=== PATIENT | female | born 2005 | race Caucasian/White ===

== ENCOUNTER 2024-01-10 11:21 | Emergency (ER) | payer OTHER, SELFPAY ==
[2024-01-10 11:24] VITALS: BP 138/84
[2024-01-10 11:42] VITALS: BP 105/66; BMI 20.1
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
[2024-01-10 12:00] VITALS: BP 111/64
--- NOTE | 2024-01-10 12:19 | EDRN ---
crisis currently at the pts bedside speaking with the pt
[2024-01-10 13:00] VITALS: BP 102/61
--- NOTE | 2024-01-10 13:37 | EDRN ---
crisis currently at the pts bedside speaking with the pt
[2024-01-10 13:46] VITALS: BP 96/73
== END 2024-01-10 13:55 | disposition home or self-care (01) ==
LOC: EMR 11:21
PROVIDERS: EMERGENCY PHYSICIAN Emergency Medicine; FAMILY PHYSICIAN Student in an Organized Health Care Education/Training Program
DX: Z00.8 Encounter for other general examination (principal)
CPT/HCPCS: 99281

== ENCOUNTER 2024-03-20 23:35 | Emergency (ER) | payer OTHER, SELFPAY ==
[2024-03-20 23:39] VITALS: BP 109/68
[2024-03-21] VITALS: BMI 27.0
--- NOTE | 2024-03-21 00:29 | ED.GENMED ---
History of Present Illness
General
Chief Complaint: Musculo-Skeletal Complaint
Source: patient
Exam Limitations: none
Time Seen by Provider: 03/21/24 00:01
Nursing documentation reviewed up to this point in time: agreed with
History of Present Illness
History of Present Illness:
18-year-old female presents to the ER for evaluation of an ankle injury. Patient reports she was playing basketball last week and she suffered inversion injury of the right ankle. She has had pain since although she has been able to bear weight.
She is having persistent swelling. She says that at the time of the injury she also developed a wound/blister on the heel. With swelling and pain continuing after we came to the ER to be evaluated. Denies knee pain. No other injuries.
Past History
Past History
ED Past Medical History: None
ED Past Surgical History: None
Social History
Tobacco: Non-smoker
Alcohol: None
Drug: None
Personal: Single
Living: with family
Employment: Student
Family History
Family History: Other
Review of Systems
Review of Systems
All Other Systems: ROS reviewed and negative except as documented in HPI and ROS
Musculoskeletal: Reports other (Ankle injury)
Skin: Reports other (blister)
Phy Exam
Physical Exam
Physical Exam:
General: Well appearing and non-toxic
HEENT: protecting airway
Neck: appears supple
CV: No evidence of cyanosis
Resp: No accessory muscle use
Abd: Non-distended
Extremities: Patient has swelling lateral right ankle and tenderness inferior aspect of the lateral malleolus on the right; no tenderness of the fifth metatarsal, no significant tenderness of the medial malleolus, no midfoot tenderness, no defect in
the Achilles tendon, negative Figueroa's test
Neuro: Alert
Psych: Normal affect
Skin: Patient has approximately dime sized blister on the right heel unroofed shallow ulceration
Scores
Heart Failure Risk
Heart Failure Risk Score: Not Applicable
Heart Score for Chest Pain Patients
STEMI patient?: Not applicable
Withdrawal Assessment of Alcohol
Withdrawal Assessment Completed?: Not applicable
Course
Orders/Labs/Results
Orders:
Orders
03/20/24 23:43
Ankle, Right 3 view CR [CR Ankle - Right Min 3 Views *] Urgent
Comment:
Reason For Exam: injury
CR Foot - Right Min 3 Views Urgent
Comment:
Reason For Exam: injury
Vital Signs
Initial and Last Documented VS:
Initial Vital Signs
Temp Pulse Resp BP Pulse Ox
37.5 C 65 20 109/68 99
03/20/24 23:39 03/20/24 23:39 03/20/24 23:39 03/20/24 23:39 03/20/24 23:39
Last Documented Vital Signs
Temp Pulse Resp BP Pulse Ox
37.5 C 65 20 109/68 99
03/20/24 23:39 03/20/24 23:39 03/20/24 23:39 03/20/24 23:39 03/20/24 23:39
MDM/Problems Addressed
Differential Diagnosis Includes:
Ankle sprain, ankle fracture, Achilles injury
MDM/Problems Addressed:
18-year-old female presents with right ankle pain after an injury last week playing basketball. Still having pain and swelling so came to the ER. Vitals and exam as above. X-rays reviewed by me show no acute fracture. Suspect ankle sprain. She
also has a blister which we cleaned and dressed. Advised RICE. Stable for discharge.
*Radiology
Radiology exam reviewed: preliminary read by ED provider
*Pulse Oximetry
Patient hypoxic: no
*Critical Care Note
Total Time (30-74mins, 75-104mins- exclusive of procedures): Not Applicable
Data Reviewed
Source: patient
ED Attending Note
-
Portions of this chart may have been created with voice recognition software.� Occasional wrong word or��sound alike� substitutions may have occurred due to the inherent limitations of voice recognition software.
Discharge Plan
Departure
Patient Disposition: Home (Routine Discharge)
Date of Disposition: 03/21/24
Time of Disposition: 00:27
Patient with high blood pressure during this ER visit?: No
Discharge Problem:
Right ankle sprain, Blister of right heel
Instructions: Sprain (DC), RICE Therapy
Prescriptions:
No Action
acetaminophen 325 mg Tablet
650 mg PO Q6HPRN PRN (Reason: mild pain/BARBOUR/temp> 100.4F) Qty: 30 0RF
ibuprofen 400 mg tablet
400 mg PO Q8H PRN (Reason: fever or pain) Qty: 14 0RF
Activity Restrictions/Additional Instructions:
Thank you for visiting the Emergency Department at [facility].
1. Please schedule a follow up appointment as directed. Call first thing tomorrow morning to make an appointment.
2. If indicated, please take your medications as instructed and indicated on discharge paperwork.
3. If any of your symptoms do not improve, or persist, or become more severe within 6-12 hours, please return to the emergency department for further care.
4. Please return to the emergency department if you develop a headache, neck pain/stiffness, fever greater than 100.4F, chest pain, shortness of breath, persistent nausea, vomiting, slurred speech, difficulty walking, numbness/tingling, weakness,
signs of infection or any other symptoms that are worrisome to you.
Please call [phone] if you have any questions.
Interventions
Interventions:
*Risk Screen - Suicide Last Done: 03/20/24 23:39
*General Assessment Last Done: 03/20/24 23:39
*Neglect/Abuse Screening Last Done: 03/20/24 23:39
ED- Fall Risk Assessment Last Done: 03/20/24 23:39
*ED COVID-19 Vaccine History Last Done: 03/20/24 23:39
ED-Musculoskeletal Assessment Last Done: 03/20/24 23:58
Discharge Date and Time
Print Language: ICELANDIC
== END 2024-03-21 00:34 | disposition home or self-care (01) ==
LOC: EMR 23:35
PROVIDERS: EMERGENCY PHYSICIAN Emergency Medicine; FAMILY PHYSICIAN Pediatrics
DX: S93.401A Sprain of unspecified ligament of right ankle, initial encounter (principal); S90.821A Blister (nonthermal), right foot, initial encounter; Y93.67 Activity, basketball
CPT/HCPCS: 99283; 73610; 73630

== ENCOUNTER 2024-03-28 22:31 | Inpatient (IN) | payer OTHER, SELFPAY ==
[2024-03-28 16:10] VITALS: BP 97/48
[2024-03-28 16:36] LABS: HCG, Serum Qualitative Screen Negative; Hematocrit 34.8 % (37.0-47.0); Hemoglobin 11.5 g/dL (12.0-16.0); Mean Corpuscular Hgb 30.2 pg (27.0-31.0); Mean Corpuscular Volume 91.3 fL (81.0-99.0); Mean Platelet Volume 10.2 fL (7.4-10.4); Platelet Count 173 10^3/uL (130-400); Red Blood Cell Count 3.81 10^6/uL (4.20-5.40); Red Cell Dist. Width 12.7 % (11.5-14.5); White Blood Cell Count 9.6 10^3/uL (4.8-10.8)
[2024-03-28 16:38] LABS: COVID-19 Antigen Negative (Negative)
[2024-03-28 16:40] LABS: ALT (SGPT) 112 U/L (0-35); AST (SGOT) 45 U/L (14-36); Albumin 3.3 g/dl (3.5-5.0); Alkaline Phosphatase 225 U/L (38-126); Blood Urea Nitrogen 13 mg/dl (7-17); Calcium 8.4 mg/dl (8.4-10.2); Carbon Dioxide 25 mmol/L (22-30); Chloride 102 mmol/L (98-107); Glucose 115 mg/dl (70-99); Potassium 3.9 mmol/L (3.5-5.1); Sodium 135 mmol/L (135-145); eGFR > 60.00
[2024-03-28 16:48] LABS: Absolute Neutrophils -Man Diff 8.5 10^3/uL (1.4-6.5); Band Neutrophils 9 % (0-3); Lymphocytes 5 % (20-51); Monocytes 6 % (2-9); Segmented Neutrophils 80 % (42-75)
[2024-03-28 16:49] LABS: Normal RBC Morphology Yes; Platelets Checked Yes; Total Cells Counted 100; Toxic Granulation Slight
--- NOTE | 2024-03-28 17:35 | ED.GENMED ---
History of Present Illness
General
Chief Complaint: Dizziness
Time Seen by Provider: 03/28/24 17:35
History of Present Illness
History of Present Illness:
TIME OF INITIAL ENCOUNTER: 5:40 PM
HPI: Patient came in from home by ambulance due to fevers and chills. This is associated with nausea and vomiting. She has some upper abdominal discomfort. She says she has been having headaches. She also indicates that she was waking up in the
nighttime with having 'episodes' sometimes with some shaking but she is awake throughout the episodes and thoughts that she may be she was having seizures. Mom states that she has been had a partial hospitalization program. She states that she
took two 500 mg strength Tylenols twice this morning. She also took ibuprofen. Mom states she was hospitalized for mono 2 years ago. She has had some trouble breathing. She recently stopped Lamictal that she was only on for a couple of weeks.
She also started Caplyta 2 days ago. I spoke to the mother away from the patient and she has been at a partial hospitalization program for her mental health with questionable diagnosis of affective versus bipolar.
EXAM:
GENERAL: Well appearing in no distress but appears somewhat weak
HEENT: Moist oral mucosa
CARDIOVASCULAR: No murmurs, normal heart rate, regular rhythm, No chest wall tenderness
PULMONARY: No respiratory distress, breath sounds are clear and equal
ABDOMEN: Soft with no peritoneal signs, mild to moderate right upper quad tenderness
NEUROLOGIC: Excellent strength all extremities, no coordination deficits, no meningeal signs
PSYCHIATRIC: Appropriate mental status, normal insight and judgement
EXTREMITIES: Nontender, no edema, moves all extremities equally
SKIN: No rash, no lesions
NUMBER AND COMPLEXITY OF PROBLEMS ADDRESSED AT THE ENCOUNTER
� Chronic conditions affecting care: No significant past medical history but is currently being evaluated at a partial hospitalization program for mental health
� Acute Exacerbation and/or Progression of Chronic Illness: This is an acute problem
� Differential Diagnosis includes: Viral syndrome, pneumonia, hepatitis, cholecystitis, sepsis
AMOUNT AND/OR COMPLEXITY OF DATA TO BE REVIEWED AND ANALYZED
� I performed an independent evaluation of and my interpretation is:
EKG:
CT:
X-rays: Chest x-ray shows consolidation at the bases left greater than right with abnormality on lateral view as well
Laboratory Studies: COVID and flu negative, hCG negative, white count 9.6 but has 10% bands, hemoglobin 11.5, renal function normal. Alk phos, AST, and ALT are slightly elevated.
Other:
� Review of other/old records: I reviewed records, the patient was seen here with mental health evaluation this past December.
� Clinical information was obtained by an independent historian: I spoke to mother and sister at bedside
� Prescriptions/Medications Considered but not given:
� Further testing considered but not performed: I did offer and consider lumbar puncture, however the workup does show signs of pneumonia based on x-ray therefore we will hold off on LP
RISK OF COMPLICATIONS AND/OR MORBIDITY OR MORTALITY OF PATIENT MANAGEMENT
� Social determinants of health affecting care: Lives at home, has been going to a partial hospitalization program but family cannot give me a clear answer as to what she was diagnosed with other than possibly bipolar or
schizophrenia.
� Discussion with other providers: Hospitalist for admission, Dr. Serrano at 9:41 PM
� Escalation of care including admission/observation vs risk of discharge considered:
ANY OTHER UPDATES:
8:20 PM: The patient continues to have multiple complaints including headache, vaginal discharge, and is concerned about this episode that she has been having at night. We did talk about the possibly of doing lumbar puncture. She prefers to wait
for additional imaging such as chest x-ray and the ultrasound first. Regard the vaginal pain, I did perform a bimanual examination which was relatively unremarkable in the presence of ROXY Arguelles.
Past History
Past History
ED Past Medical History: None
ED Past Surgical History: None
Social History
Tobacco: Non-smoker
Alcohol: None
Drug: None
Personal: Single
Living: with family
Employment: Student
Family History
Family History: Other
Phy Exam
Physical Exam
Physical Exam:
See HPI
Sepsis
Sepsis Screening
Sepsis Assessment: Sepsis
Sepsis Screen
Sepsis Screen: Sepsis
Date: 03/28/24
Time: 22:06
Course
Orders/Labs/Results
Orders:
Orders
03/28/24 16:09
Test Result ONCE
03/28/24 16:14
Acetaminophen Urgent
Comment: ADD ON
COVID-19 Antigen Urgent
Source: Nasal Swab
Complete Blood Count/With Diff Urgent
Comprehensive Metabolic Panel Urgent
HCG, Serum Qualitative Screen Urgent
Lactic Acid Urgent
Manual Differential Urgent
Monotest Urgent
Comment: ADD ON
Influenza A+B Rapid Molecular Urgent
AILEEN Source: Nasal Swab
Specimen Description:
03/28/24 17:36
Add On- LAB Urgent
Tests Added?: acetaminophen level
03/28/24 17:37
0.9% Sodium Chloride 1000 ml [Nss] 1,000 ml IV BOLUS
03/28/24 17:45
Add On- LAB Urgent
Tests Added?: monotest
0.9% Sodium Chloride 1000 ml [Nss] 1,000 ml IV BOLUS
Ketorolac [Toradol] 15 mg IV NOW STA
US Abdomen Complete/Upper Urgent
Comment:
Reason For Exam: RUQ tender; abnormal LFT; fevers
03/28/24 17:53
CR Chest - 2 Views Urgent
Comment:
Reason For Exam: sob fevers
03/28/24 19:23
0.9% Sodium Chloride 1000 ml [Nss] 1,000 ml IV BOLUS
Acetaminophen [Tylenol] 1,000 mg PO NOW STA
03/28/24 20:29
Urinalysis Reflex To Culture Urgent
Date Specimen was Collected: 03/28/24
Time Specimen was Collected: 20:27
Urine Microscopic Reflex Cult Urgent
Urine Culture Urgent
AILEEN Source: U
Specimen Description:
Date Specimen was Collected: 03/28/24
Time Specimen was Collected: 20:27
03/28/24 21:13
Azithromycin 500 mg/250 ml [Zithromax Infusion] 500 mg in 250 ml IV NOW
CefTRIAXone [Rocephin] 1,000 mg IV NOW STA
03/28/24 21:54
Blood Culture Q30M
AILEEN Source: Blood/Venous
Specimen Description:
Blood Culture Q30M
AILEEN Source: Blood/Venous
Specimen Description:
Abnormal Lab Results
03/28/24 03/28/24
16:14 20:29
RBC 3.81 L 10^6/uL
(4.20-5.40)
Hgb 11.5 L g/dL
(12.0-16.0)
Hct 34.8 L %
(37.0-47.0)
Abs Neuts (Manual) 8.5 H 10^3/uL
(1.4-6.5)
Segmented Neutrophils 80 H %
(42-75)
Band Neutrophils 9 H %
(0-3)
Lymphocytes (Manual) 5 L %
(20-51)
Glucose 115 H mg/dl
(70-99)
AST 45 H U/L
(14-36)
ALT 112 H U/L
(0-35)
Alkaline Phosphatase 225 H U/L
(38-126)
Total Protein 6.0 L g/dl
(6.3-8.2)
Albumin 3.3 L g/dl
(3.5-5.0)
Urine Ketones 1+ A
(Negative)
Urine Bilirubin 1+ A
(Negative)
Urine Urobilinogen 3+ A
(Neg - 1+)
Leukocyte Esterase Rfl Trace A
(Negative)
Urine RBC 3-6 A /HPF
(0-2)
Urine Bacteria (Reflex) Moderate A
(Negative)
Urine Glucose 1+ A
(Negative)
Urine Albumin (Reflex) 1+ A
(Neg - Trace)
03/28/24 16:14
03/28/24 16:14
Vital Signs
Initial and Last Documented VS:
Initial Vital Signs
Temp Pulse Resp Pulse Ox
38.5 C H 125 18 95
03/28/24 16:02 03/28/24 16:02 03/28/24 16:02 03/28/24 16:02
Last Documented Vital Signs
Temp Pulse Resp BP Pulse Ox
37.9 C 105 31 125/70 91
03/28/24 20:12 03/28/24 20:30 03/28/24 20:30 03/28/24 20:00 03/28/24 20:30
*Critical Care Note
Total Time (30-74mins, 75-104mins- exclusive of procedures): Not Applicable
ED Attending Note
-
Portions of this chart may have been created with voice recognition software.� Occasional wrong word or��sound alike� substitutions may have occurred due to the inherent limitations of voice recognition software.
Discharge Plan
Departure
Patient Disposition: Admit
Date of Disposition: 03/28/24
Time of Disposition: 21:44
Presentation/result/management discussed w/ accepting MD/DO: Hospitalist
Discharge Problem:
Sepsis due to pneumonia
Prescriptions:
No Action
acetaminophen 325 mg Tablet
650 mg PO Q6HPRN PRN (Reason: mild pain/BARBOUR/temp> 100.4F) Qty: 30 0RF
ibuprofen 400 mg tablet
400 mg PO Q8H PRN (Reason: fever or pain) Qty: 14 0RF
Referrals:
Ryan Boyer III, [Family Provider] -
Interventions
Interventions:
*Risk Screen - Suicide Last Done: 03/28/24 16:10
*Neglect/Abuse Screening Last Done: 03/28/24 16:10
ED- Neurological Assessment Last Done: 03/28/24 18:06
ED- Cardiac Assessment Last Done: 03/28/24 18:06
Discharge Date and Time
Print Language: ITALIAN
[2024-03-28 17:40] VITALS: BP 109/57
[2024-03-28] MEDS: NSS 1000 IV ×3 (17:52→19:29)
[2024-03-28] MEDS: TORADOL 15 MG IV (17:53)
[2024-03-28 18:00] VITALS: BP 114/58
[2024-03-28 18:08] LABS: Acetaminophen 12 ug/ml (10-30)
[2024-03-28 18:11] LABS: Monotest Negative (Negative)
[2024-03-28 19:00] VITALS: BP 122/72
[2024-03-28] MEDS: TYLENOL 1000 MG PO (19:29)
[2024-03-28 20:00] VITALS: BP 125/70
[2024-03-28 20:37] LABS: Urine Albumin 1+ (Neg - Trace); Urine Bilirubin 1+ (Negative); Urine Character Clear (Clear); Urine Color Yellow; Urine Glucose 1+ (Negative); Urine Ketone 1+ (Negative); Urine Leukocyte Trace (Negative); Urine Nitrite Negative (Negative); Urine Occult Blood Negative (Negative); Urine Urobilinogen 3+ (Neg - 1+)
[2024-03-28 20:55] LABS: Urine Bacteria Moderate (Negative)
--- NOTE | 2024-03-28 21:53 | HPS.HSE ---
Family Physician
-
Family Physician: Ryan Boyer, III, DO
Chief Complaint
-
Fever
History of Present Illness
18-year-old with past medical history for bipolar presented to us fever chills for past 6 days. Patient stated fever of 103 at home. Patient is complaining of generalized body achiness. She also complained of nausea and vomiting. For past 2
days, she was not able to tolerate any oral intake. She was waking up at nighttime with shaking chills. Patient was taking ibuprofen and Tylenol with no relief in her symptoms. Patient denied any abdominal pain. Stated burning with urination.
Denied any hematuria.
Patient was treated with azithromycin and ceftriaxone for possible pneumonia
Medical History
Past Medical History
Past Medical History: Reports Other
Additional Past Medical History:
Bipolar
Past Surgical History: Reports None
Social History
Tobacco: Former Smoker
Alcohol: None
Drug: None
Personal: Single
Living: With Family
Family History
Family History: Not pertinent
Allergies / Home Medications
Allergies reflects when Allergies were last updated in [employer].
Home Medications with original date entered in [employer]
Allergy/Medication List:
Allergies
Allergy/AdvReac Type Severity Reaction Status Date / Time
No Known Allergies Allergy Verified 03/20/24 23:39
Home Medications
acetaminophen 325 mg tablet 650 mg (2 x 325 mg) PO Q6HPRN PRN mild pain/BARBOUR/temp> 100.4F #30 tabs 01/30/22
ibuprofen 400 mg tablet 400 mg PO Q8H PRN fever or pain #14 tabs 01/30/22
Review of Systems
-
Constitutional: Reports Fever, Fatigue, Night Sweats and Chills
EENT: Reports No Symptoms
Respiratory: Reports Cough
Cardiac: Reports No Symptoms
Abdomen/GI: Reports Nausea and Vomiting
: Reports No Symptoms
Musculoskeletal: Reports No Symptoms
Skin: Reports No Symptoms
Neurological: Reports No Symptoms
Endocrine: Reports No Symptoms
Hematologic/Lymphatic: Reports No Symptoms
Psych: Reports No Symptoms
Physical Exam
Vital Signs
Vital Signs
Temp Pulse Resp BP Pulse Ox
100.2 F 105 31 125/70 91
03/28/24 20:12 03/28/24 20:30 03/28/24 20:30 03/28/24 20:00 03/28/24 20:30
Physical Exam
General: Well Developed, Well Nourished and No Apparent Distress
HEENT: NormoCephalic, Moist mucous membranes and Atraumatic
Respiratory: Clear
Cardiac: S1/S2 and Regular Rhythm; No Murmur or Rub
GI: Soft, Non Tender, Non Distended and Normal Bowel Sounds; No Organomegaly
Rectal: Deferred by Provider
Musculoskeletal: No Clubbing, No Cyanosis and No Edema
Skin: No Rash
Neuro: AO x 3 and Nonfocal/grossly intact
Psych: Calm
Laboratory Results
-
03/28/24 16:14
03/28/24 16:14
Laboratory Results
Lactic Acid 1.0 mmol/L (0.7-2.0) 03/28/24 16:14
Total Bilirubin 1.0 mg/dl (0.2-1.3) 03/28/24 16:14
AST 45 U/L (14-36) H 03/28/24 16:14
ALT 112 U/L (0-35) H 03/28/24 16:14
Alkaline Phosphatase 225 U/L (38-126) H 03/28/24 16:14
Data Reviewed
-
Lab Data: Labs Reviewed by me
Impression/Plan
-
# Fever/n/v/chills likely from pneumonia
# Sepsis as evidenced by fever, tachycardia
-Blood culture sent from ER
-IV Rocephin azithromycin
-COVID, mono, flu negative
-Tylenol as needed for fever
-Zofran prn for n/v
# Anemia of chronic disease
-Hemoglobin stable at 11.5
-No active bleeding
-Continue to monitor
# Chronic LFT elevation
-Continue to monitor
-Abdominal ultrasound pending
# Bipolar
-Caplyta continued
# DVT prophylaxis
-scd
# CODE STATUS
-Full code
[2024-03-28] MEDS: ROCEPHIN 1000 MG IV (21:55)
[2024-03-28] MEDS: ZITHROMAX INFUSION 250 IV (22:00)
--- NOTE | 2024-03-28 22:29 | W.PN.UPDATE ---
Update Note
Progress Note Update
This note serves as an addendum to the H&P by renewable energy consultant ELIA Geena GOVEA
HPI
18 F HX Bipolar disorder seen at ER
- [facility]
- reports fever and chills : T 102, Tachy cardic and marginal hypoxia at ER
- associated with nausea and vomiting and some upper abdominal discomfort.
- associated headaches
- she took two 500 mg Tylenols twice this morning and also too ibuprofen.
- She recently stopped Lamictal that she was only on for a couple of weeks.
- She also started Caplyta 2 days ago.
She has been at a partial hospitalization program for her mental health with questionable diagnosis of affective versus bipolar disorder
Reviewed VS: T 102. [address] 105 tachypnic Normotensive POx low 90s on RA
PE
Gen: Not toxic looking
HEENT: anicteric
Neck: supple
Lungs: crackles at both bases, cough with deep breathin,. No wheeze
Cor: RRR S1 S2
Abdomen: soft benign
INTERACTIVE ACCOUNT MANAGER: AAO# , NFND
MS: no edema
Psych: normal mood and affect
Data
Abnormal Lab Results
03/28/24 03/28/24
16:14 20:29
RBC 3.81 L
Hgb 11.5 L
Hct 34.8 L
Abs Neuts (Manual) 8.5 H
Segmented Neutrophils 80 H
Band Neutrophils 9 H
Lymphocytes (Manual) 5 L
Glucose 115 H
AST 45 H
ALT 112 H
Alkaline Phosphatase 225 H
Total Protein 6.0 L
Albumin 3.3 L
Urine Ketones 1+ A
Urine Bilirubin 1+ A
Urine Urobilinogen 3+ A
Leukocyte Esterase Rfl Trace A
Urine RBC 3-6 A
Urine Bacteria (Reflex) Moderate A
Urine Glucose 1+ A
Urine Albumin (Reflex) 1+ A
BCx sent
US Abdomen:
Neg GB, neg sonographic Chen's
CBD 3.8mm
mild hepato splenomegaly
CXR my read: consolidation at the bases Lt post > Rt
ASSESSMENT & PLAN
Suspect B/L PNA at both bases presumed CAP
Associated Sepsis with bandemia
Suspect bacteremia
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
- agree with IV CFTZ and PO azithromycin
- check Urine Legionella Ag
- Septic fluid IV NS and maintenance IV NS
- BCx sent
HX BPD vs Affective disorder
On partial hospitalization program
DVT Px: SCD
Full code
IP MS
[2024-03-28] MEDS: ZOFRAN 4 MG IV (22:50)
[2024-03-28 22:53] VITALS: BMI 25.1
[2024-03-29] VITALS (8 sets, daily range): BP systolic 92–125; BP diastolic 51–79; BMI 27.6
[2024-03-29] MEDS: NSS 1000 IV ×3 (00:40→22:21)
[2024-03-29] MEDS: TYLENOL 650 MG PO ×5 (00:40→22:23)
[2024-03-29] MEDS: MOTRIN 200 MG PO (00:41)
[2024-03-29] MEDS: ULTRAM 100 MG PO (00:42)
--- NOTE | 2024-03-29 01:34 | EDRN ---
Pt fever 103.3, medicated with 200mg Ibuprofen & 650mg Tylenol as per orders. Pt c/o whole body pain, states tylenol and ibuprofen have no been helping. Pt ordered for 100mg tramadol PRN, dose given. Pt tachypneic and having frequent nonproductive
cough, states she has been feeling short of breath since Saturday. O2 sat 80% on room air. Pt placed on 4L NC O2 and was able to get her up to 96%. Pt reports improvement with supplemental O2. CRISSY Ledezma made aware and at bedside to see patient.
[2024-03-29] MEDS: TESSALON PERLES 100 MG PO ×4 (01:41→22:22)
[2024-03-29] MEDS: ROBITUSSIN DM 5 ML PO ×3 (06:05→22:22)
--- NOTE | 2024-03-29 06:31 | EDRN ---
Pt awake, coughing more at this time. Temp 98.3. Pt given Robitussin DM. O2 sat 88% on 4L NC O2. CRISSY Schmitt made aware, oxygen increased to 6L NC O2. Pt given incentive spirometer and demonstrated proper use. Awaiting neb treatment order.
[2024-03-29 06:44] LABS: ALT (SGPT) 71 U/L (0-35); AST (SGOT) 28 U/L (14-36); Albumin 2.7 g/dl (3.5-5.0); Alkaline Phosphatase 162 U/L (38-126); Blood Urea Nitrogen 10 mg/dl (7-17); Calcium 7.8 mg/dl (8.4-10.2); Carbon Dioxide 24 mmol/L (22-30); Chloride 105 mmol/L (98-107); Estimated Creatinine Clearance > 125 ml/min; Glucose 103 mg/dl (70-99); Potassium 4.4 mmol/L (3.5-5.1); Sodium 136 mmol/L (135-145); Total Bilirubin 0.8 mg/dl (0.2-1.3); Total Protein 5.3 g/dl (6.3-8.2); eGFR > 60.00
--- NOTE | 2024-03-29 08:15 | W.PN.UPDATE ---
Update Note
Progress Note Update
18-year-old female with fever and chills. Patient stated that she was started on Lamictal as outpatient 2 weeks ago. A week ago she started getting sick with cough fever and bodyaches. Lamictal was stopped. She was started on Caplyta which she
states that she has not been taking even though parents think that she is taking it. She does not want to take antidepressants and parents force her to take it.
EKG sinus tachycardia.
Chest x-ray reviewed by me-bilateral lower lobe infiltrates
CVS: S1-S2 normal
Chest: few rales bilaterally
Abdomen: Soft, NT / Bowel sounds present
Extremities: No edema, normal pulses
AIRCRAFT INSPECTION RECORD CLERK: Non focal exam
# Fever chills with criteria met for sepsis on admission
Gram-positive cocci in pairs and chains-likely Streptococcus pneumonia
Likely from pneumonia
Repeat blood cultures
Infectious disease consultation
Continue ceftriaxone and Zithromax
COVID, influenza negative
Sputum culture if possible
# LFT elevation-trending down
Seems to have chronically elevated LFTs since 2021 -unclear if this was the time when she had mononucleosis
Ultrasound of the abdomen-mild hepatomegaly, mild splenomegaly. Unremarkable gallbladder
Patient also stated that she was taking Tylenol at home up to 5 g. Add on Tylenol level to admission labs
LFTs are improving
# Depression-continue Caplyta started 2 days ago
She recently stopped Lamictal a week ago
Patient states that she has not been taking Caplyta and does not want to take it.
Pharmacy does not carry
# Active smoker-cessation counseling done use nicotine patch if needed.
# DVT prophylaxis
# Full code
--- NOTE | 2024-03-29 08:16 | EDRN ---
BReakfast tray ordered for patient
[2024-03-29] MEDS: MUCINEX 600 MG PO ×2 (08:28→19:48)
[2024-03-29] MEDS: ULTRAM 25 MG PO ×3 (08:36→22:24)
--- NOTE | 2024-03-29 12:07 | PHANOTE ---
med rec note- patient saved stopped her caplyta 21mg Hs, she also stopped her Lamictal 25mg daily on Saturday and she acosta snot know what divalproex 250mg dr daily for 7 day then bid for 23 days filled on 02/25/24 at [facility]. patient grandma
in room said she have patient mom call me about patient medication.
[2024-03-29 13:18] LABS: Acetaminophen < 10 ug/ml (10-30)
--- NOTE | 2024-03-29 13:33 | CON.ID ---
Consultation
-
Date/Time Consultation Requested: 03/29/2024 0823
Date/Time Consultation Performed: 03/29/2024 1224
Requesting Provider: Dr. Sin
Performing Provider: Dr. Amaral
Reason for Consultation: Pneumonia; bacteremia
Chief Complaint / Past History
History of Present Illness
Saumya Zamora is a 18-year-old female being evaluated at the request of Dr. Sin in regards to pneumonia. History is obtained from chart review, along with patient interview. Additionally, history was obtained from the patient's grandmother
who is at the bedside.
The patient recently was in the ER on 03/21 for a right ankle injury after she was playing sports. She was discharged to home, and reports that she did well thereafter. She notes that approximately 6 days ago she began to develop chills and a
headache. Over the past week symptomatology has worsened with the development of intermittent vertigo and dizziness, along with fevers and night sweats. She additionally has developed a cough and some shortness of breath intermittently.
Temperatures were noted to be 2 103 degrees at home. She reports taking Tylenol and Motrin to reduce fevers. She admits to clear sputum production which is noted to be thick, with occasional blood streaking over the past day or so. Yesterday she
developed nausea and vomiting. She additionally admits to occasional dysuria. Ultimately symptomatology persisted and she presents to the emergency room for further evaluation. Here she was not found to have a leukocytosis, but blood cultures
obtained at the time of admission are now positive for gram-positive cocci, and Infectious Diseases is asked to comment upon further antimicrobial therapy.
Past History
Past Medical History: None
Past Surgical History: None
Allergy History:
No Known Allergies Allergy (Verified 03/20/24 23:39)
Medications Reviewed: Yes
Current Antibiotics:
Ceftriaxone
Azithromycin
Social History
Tobacco: Non-Smoker
Alcohol: None
Drug: None
Personal: Single
Living: With Family
Employment: Employed
Family History
Family History: Not Pertinent
Review of Systems
Vital Signs
Temp Pulse Resp BP Pulse Ox
100.3 F 112 31 92/51 93
03/29/24 10:08 03/29/24 12:45 03/29/24 12:45 03/29/24 11:55 03/29/24 12:45
Physical Exam
Physical Exam
Constitutional: No Acute Distress, Well Developed, Comfortable and Non-toxic
Head: Normocephalic
Eyes: Pupils Equal, Pupils Round, No Conjunctival Hemorrhage and Sclera Anicteric
Oral: No Thrush and No Ulcers
Cardiovascular: Regular Rate and S1/S2; Negative S3/S4
Pulmonary: Clear; Negative Wheezes, Rales or Rhonchi
Gastrointestinal: Soft, Non Tender and Non Distended
Extremities: Negative Edema, Cyanosis or Erythema
Neurological: Awake and Alert
Psychological: Calm
.
Lab / Diagnostic Study Results
03/28/24 16:14
03/29/24 06:10
Total Counted 100 03/28/24 16:14
Abs Neuts (Manual) 8.5 10^3/uL (1.4-6.5) H 03/28/24 16:14
Segmented Neutrophils 80 % (42-75) H 03/28/24 16:14
Band Neutrophils 9 % (0-3) H 03/28/24 16:14
Lymphocytes (Manual) 5 % (20-51) L 03/28/24 16:14
Lactic Acid 1.0 mmol/L (0.7-2.0) 03/28/24 16:14
Ur Squamous Epith Cells 11-15 /LPF (Few) 03/28/24 20:29
Microbiology Results
Micro:
03/28/24 21:54 Blood Culture - Preliminary
Blood/Venous Positive culture in progress
Gram Stain - Final
03/28/24 21:54 Blood Culture - Preliminary
Blood/Venous Positive culture in progress
Gram Stain - Final
03/28/24 20:29 Urine Culture - Pending
Urine
03/28/24 16:14 Influenza Types A & B (HANNAH) - Final
Nasal Swab Negative for Influenza A & B, NAAT
Negative results must be combined with clinical observations
and patient history.
Nucleic Acid Amplification test (NAAT)performed on the
[employer] platform.
Imaging:
03/28/2024 CXR (2 view): No visible pneumothorax. Moderate airspace disease in the left lower lung field, and mildly in the right lower lung field concerning for pneumonia. Please see full dictation for additional detail. Film personally viewed.
Assessment / Plan
Left lower lobe pneumonia
Bacteremia (suspect pneumococcus)
Fever
Recommendations:
Continue with empiric ceftriaxone and Azithromycin.
Await further culture data to guide antimicrobial therapy and de-escalation.
Monitor white count and temperature curve.
Further recommendations as additional data is returned.
[2024-03-29 14:09] LABS: Vitamin B12 > 1000 pg/ml (239-931)
--- NOTE | 2024-03-29 14:37 | W.PN.HOSP.TC ---
Addendum entered and electronically signed by Brent Sin MD 03/29/24 14:43:
Mother updated with patient's permission. Aware about bacteremia pneumonia
Also discussed about antidepressant I am okay with her not taking it while here, and can restart when she is home
Stopped
Original Note:
Today's Communication/Plan
-
rpt bc
AB
Assessment / Plan
Assessment / Plan
18-year-old female with fever and chills. Patient stated that she was started on Lamictal as outpatient 2 weeks ago. A week ago she started getting sick with cough fever and bodyaches. Lamictal was stopped. She was started on Caplyta which she
states that she has not been taking even though parents think that she is taking it. She does not want to take antidepressants and parents force her to take it.
EKG sinus tachycardia.
Chest x-ray reviewed by me-bilateral lower lobe infiltrates
CVS: S1-S2 normal
Chest: few rales bilaterally
Abdomen: Soft, NT / Bowel sounds present
Extremities: No edema, normal pulses
REHABILITATION CASEWORKER: Non focal exam
# Fever chills with criteria met for sepsis on admission
Gram-positive cocci in pairs and chains-likely Streptococcus pneumonia
Likely from pneumonia
Repeat blood cultures
Infectious disease consultation
Continue ceftriaxone and Zithromax
COVID, influenza negative
Sputum culture if possible
# LFT elevation-trending down
Seems to have chronically elevated LFTs since 2021 -unclear if this was the time when she had mononucleosis
Ultrasound of the abdomen-mild hepatomegaly, mild splenomegaly. Unremarkable gallbladder
Patient also stated that she was taking Tylenol at home up to 5 g. Add on Tylenol level to admission labs
LFTs are improving
# Depression-continue Caplyta started 2 days ago
She recently stopped Lamictal a week ago
Patient states that she has not been taking Caplyta and does not want to take it.
Pharmacy does not carry
# Active smoker-cessation counseling done use nicotine patch if needed.
# DVT prophylaxis
# Full code
Anticipated Discharge: 24 - 48 hours
Subjective/Interval History
-
Date of Service: March 29, 2024
Objective Data
-
Labs:
Laboratory Results
03/29/24
06:10
Sodium 136
Potassium 4.4
Chloride 105
Carbon Dioxide 24
BUN 10
Creatinine 0.7
Glucose 103 H
Calcium 7.8 L
Total Bilirubin 0.8
AST 28
ALT 71 H
Alkaline Phosphatase 162 H
Vital Signs:
Vital Signs
Temp Pulse Resp BP Pulse Ox
102.1 F H 117 18 114/74 96
03/29/24 14:06 03/29/24 14:06 03/29/24 14:06 03/29/24 14:06 03/29/24 14:06
[2024-03-29] MEDS: ZOFRAN 4 MG IV (19:50)
[2024-03-29] MEDS: ROCEPHIN 1000 MG IV (22:15)
[2024-03-29] MEDS: STERILE WATER FOR INJECTION 10 ML IV (22:15)
[2024-03-29] MEDS: ZITHROMAX INFUSION 250 IV (22:22)
[2024-03-29] MEDS: ProAIR HFA INHALER 1 PUFF INH (22:45)
[2024-03-30] MEDS: ROBITUSSIN DM 5 ML PO ×3 (03:15→20:40)
[2024-03-30] MEDS: ProAIR HFA INHALER 1 PUFF INH (03:41)
[2024-03-30] MEDS: ULTRAM 25 MG PO ×4 (04:07→23:30)
[2024-03-30] MEDS: TYLENOL 650 MG PO ×3 (06:24→23:30)
[2024-03-30] MEDS: TESSALON PERLES 100 MG PO ×3 (06:25→20:40)
[2024-03-30 07:54] LABS: ALT (SGPT) 53 U/L (0-35); AST (SGOT) 22 U/L (14-36); Albumin 2.6 g/dl (3.5-5.0); Alkaline Phosphatase 173 U/L (38-126); Blood Urea Nitrogen 8 mg/dl (7-17); Calcium 8.2 mg/dl (8.4-10.2); Carbon Dioxide 24 mmol/L (22-30); Chloride 106 mmol/L (98-107); Estimated Creatinine Clearance > 125 ml/min; Glucose 98 mg/dl (70-99); Potassium 4.3 mmol/L (3.5-5.1); Sodium 137 mmol/L (135-145); Total Bilirubin 0.5 mg/dl (0.2-1.3); Total Protein 5.1 g/dl (6.3-8.2); eGFR > 60.00
[2024-03-30] MEDS: XOPENEX 0.63 MG INHALANT SOLUTION INH ×2 (08:23→13:19)
[2024-03-30 08:42] VITALS: BP 124/80
[2024-03-30] MEDS: NSS 1000 IV (08:50)
[2024-03-30] MEDS: MUCINEX 600 MG PO ×2 (08:52→20:40)
[2024-03-30 09:28] VITALS: BP 126/83
[2024-03-30 09:58] LABS: Vitamin D, 25-OH*** 17.7 ng/mL (30-80)
--- NOTE | 2024-03-30 12:12 | CM ---
epic manager reviewed patient's chart and met with patient and patient lives with her parents in a multilevel home, patient is independent with ADL's and ambulation, no dme, home with parents when stable, no needs.
PCP: Dr. Boyer
Pharmacy: [facility] in [place]
Plan; Home with parents when stable.
--- NOTE | 2024-03-30 14:59 | PTCARENOTE ---
Encouraged coughing, deep breathing, and use of incentive spirometry. Discussed importance of mobility, patient agreed to try to sit in chair, but while attempting to transfer, coughing fit started, then patient refused to get OOB. Agreeable to have
bed go into chair position. Parents at bedside, updated on plan.
[2024-03-30] MEDS: VENTOLIN NEBULES INH (15:48)
[2024-03-30] MEDS: NSS IV (16:06)
--- NOTE | 2024-03-30 16:14 | W.PN.ID1 ---
Date of Service
Date of Service: March 30, 2024
Today's Communication
Continue antibiotics. Change to ampicillin and clindamycin
Assessment / Plan
Left lower lobe pneumonia
Bacteremia with group A strep
Fever
Recommendations:
Changed to ampicillin 2 g IV every 6 hours. Add clindamycin 900 mg IV every 8 hours
Repeat blood cultures x 2
Monitor white count and temperature curve.
����������������������������������������������������������
Chief Complaint
-: Pneumonia and Bacteremia
Subjective / Review of Systems
Patient seen and examined. Continues to require O2 supplementation. Feels slightly improved from yesterday.
Vital Signs / Physical Exam
Vital Signs
Vital Signs
Temp Pulse Resp BP Pulse Ox
98.8 F 115 24 126/83 92
03/30/24 09:28 03/30/24 13:26 03/30/24 13:26 03/30/24 09:28 03/30/24 13:26
Physical Exam
Constitutional: No Acute Distress, Well Developed, Comfortable and Non-toxic
Eyes: No Conjunctival Hemorrhage and Sclera Anicteric
Cardiovascular: Regular Rate and S1/S2; Negative S3/S4
Pulmonary: Rhonchi
Gastrointestinal: Soft, Non Tender and Non Distended
Extremities: Edema; Negative Cyanosis, Erythema, Splinter Hemorrhage or Janeway Lesions
Neurological: Awake and Alert
Psychological: Calm
Objective Data
Lab Data
Lab Results
03/28/24 16:14
03/30/24 06:58
Estimated Creat Clear > 125 ml/min 03/30/24 06:58
Lactic Acid 1.0 mmol/L (0.7-2.0) 03/28/24 16:14
Total Bilirubin 0.5 mg/dl (0.2-1.3) 03/30/24 06:58
AST 22 U/L (14-36) 03/30/24 06:58
ALT 53 U/L (0-35) H 03/30/24 06:58
Alkaline Phosphatase 173 U/L (38-126) H 03/30/24 06:58
Most recent labs reviewed.
Micro Results:
03/28/24 20:29 Urine Culture - Final
Urine
03/28/24 21:54 Blood Culture - Preliminary
Blood/Venous Streptococcus pyogenes
Gram Stain - Final
03/28/24 21:54 Blood Culture - Preliminary
Blood/Venous Streptococcus pyogenes
Gram Stain - Final
03/29/24 20:29 Legionella Urinary Antigen - Final
Urine Negative for Legionella pneumophila Serogroup 1 antigen.
A negative result does not rule out the possiblity of
Legionella infection due to other serogroups or species of
Legionella. Clinical correlation is recommended.
03/29/24 19:45 Blood Culture - Pending
Blood/Venous
03/29/24 18:34 Blood Culture - Pending
Blood/Venous
03/28/24 16:14 Influenza Types A & B (HANNAH) - Final
Nasal Swab Negative for Influenza A & B, NAAT
Negative results must be combined with clinical observations
and patient history.
Nucleic Acid Amplification test (NAAT)performed on the
[employer] platform.
Imaging:
03/28/2024 CXR (2 view): No visible pneumothorax. Moderate airspace disease in the left lower lung field, and mildly in the right lower lung field concerning for pneumonia. Please see full dictation for additional detail. Film personally viewed.
Care Review
Plan reviewed with: Physician (Hospitalist)
--- NOTE | 2024-03-30 16:36 | W.PN.HOSP.TC ---
Today's Communication/Plan
-
Antibiotics changed
Follow cultures
Wean oxygen as tolerated
Mucolytics
Pulmonary consultation
CXR in am
Assessment / Plan
Assessment / Plan
18-year-old female with fever and chills. Patient stated that she was started on Lamictal as outpatient 2 weeks ago. A week ago she started getting sick with cough fever and bodyaches. Lamictal was stopped. She was started on Caplyta which she
states that she has not been taking even though parents think that she is taking it. She does not want to take antidepressants and parents force her to take it.
EKG sinus tachycardia.
Chest x-ray reviewed by me-bilateral lower lobe infiltrates
CVS: S1-S2 normal
Chest: few rales bilaterally
Abdomen: Soft, NT / Bowel sounds present
Extremities: No edema, normal pulses
CLIENT TECHNOLOGIES SPECIALIST: Non focal exam
# Fever chills with criteria met for sepsis on admission
Acute hypoxic respiratory failure secondary to strep pyogenes bacteremia pneumonia-on 6 L of oxygen.
Gram-positive cocci in pairs and chains-likely Streptococcus pneumonia
Repeat blood cultures negative so far
Infectious disease consultation appreciated
Ceftriaxone and Zithromax changed to ampicillin and clindamycin
COVID, influenza negative
Sputum culture if possible
Monitor on telemetry
Wean oxygen as tolerated
Continue nebulizer and incentive spirometry
Pulmonary consultation
Repeat chest x-ray tomorrow
Encouraged out of bed and up right position Instead of supine
Continue mucolytics
# LFT elevation-trending down
Seems to have chronically elevated LFTs since 2021 -unclear if this was the time when she had mononucleosis
Ultrasound of the abdomen-mild hepatomegaly, mild splenomegaly. Unremarkable gallbladder
Patient also stated that she was taking Tylenol at home up to 5 g. Add on Tylenol level to admission labs
LFTs are improving
# Depression-continue Caplyta started 2 days ago
She recently stopped Lamictal a week ago
Patient states that she has not been taking Caplyta and does not want to take it.
# Vitamin D deficiency-replace
# Active smoker-cessation counseling done use nicotine patch if needed. Again discussed with patient today.
# DVT prophylaxis
# Full code
Discussed with patient's mother at bedside
They had a lot of questions all answered
Discussed with nursing
Discussed with infectious disease
time spent 38 min
Anticipated Discharge: > 48 hours
Subjective/Interval History
-
Date of Service: March 30, 2024
Objective Data
-
Labs:
Laboratory Results
03/30/24
06:58
Sodium 137
Potassium 4.3
Chloride 106
Carbon Dioxide 24
BUN 8
Creatinine 0.6
Glucose 98
Calcium 8.2 L
Total Bilirubin 0.5
AST 22
ALT 53 H
Alkaline Phosphatase 173 H
Vital Signs:
Vital Signs
Temp Pulse Resp BP Pulse Ox
98.8 F 115 24 126/83 92
03/30/24 09:28 03/30/24 13:26 03/30/24 13:26 03/30/24 09:28 03/30/24 13:26
I&O
03/29/24 03/30/24 03/31/24
06:59 06:59 06:59
Intake Total 2550 / 2550 1959
Output Total 700 / 700
Balance 1849 / 1849
--- NOTE | 2024-03-30 16:40 | CON.PUL ---
Consultation
Consultation Request
Date/Time Consultation Requested: 03/30/24
Date/Time Consultation Performed: 03/30/24
Performing Provider: Eladia
Reason for Consultation: PNA
Medical History
-
History of Present Illness:
18-year-old female with history of smoking, presented to ER with fever and chills for the past 6 days. She had Tmax of 103 Fahrenheit at home. She had complained of generalized bodyaches and nausea vomiting. On arrival to the ER, chest x-ray
demonstrating bibasilar pneumonia, placed on empiric antibiotics.
She has no prior history of lung disease, denies family history of lung disease. 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
She also was a former smoker, total usage 4 to 6 years of 1 pack/day. She also was vaping nicotine for some period of time.
Blood cultures showing positive strep pyogenes.
Past Medical History
Past Medical History: Other (see list below)
Social History
Tobacco: Vaping
Alcohol: None
Drug: None
Family History
Family History: Reviewed & Not Pertinent
Allergies / Home Medications
Allergies
Allergy/AdvReac Type Severity Reaction Status Date / Time
No Known Allergies Allergy Verified 03/20/24 23:39
Home Medications
�Medication �Instructions �Recorded �Confirmed �Last Taken �Type
No Meds [No Current Medications] 03/29/24 03/29/24 Unknown History
Review of Systems
-
History Source: Patient
All other systems: Negative unless noted
Vitals / Labs / Diagnostic Testing
Vital Signs
Temp Pulse Resp BP Pulse Ox
98.8 F 115 24 126/83 92
03/30/24 09:28 03/30/24 13:26 03/30/24 13:26 03/30/24 09:28 03/30/24 13:26
Lab Data
03/28/24 16:14
03/30/24 06:58
Microbiology
03/28/24 21:54 Blood/Venous Blood Culture - Preliminary
Streptococcus pyogenes
03/28/24 21:54 Blood/Venous Gram Stain - Final
03/28/24 20:29 Urine Urine Culture - Final
03/28/24 21:54 Blood/Venous Blood Culture - Preliminary
Streptococcus pyogenes
03/28/24 21:54 Blood/Venous Gram Stain - Final
03/29/24 20:29 Urine Legionella Urinary Antigen - Final
Negative for Legionella pneumophila Serogroup 1 antigen.
A negative result does not rule out the possiblity of
Legionella infection due to other serogroups or species of
Legionella. Clinical correlation is recommended.
03/28/24 16:14 Nasal Swab Influenza Types A & B (HANNAH) - Final
Negative for Influenza A & B, NAAT
Negative results must be combined with clinical observations
and patient history.
Nucleic Acid Amplification test (NAAT)performed on the
[employer] platform.
Diagnostic Testing:
Physical Exam
-
HEENT: Normocephalic, Anicteric and Moist Mucous Membranes
Cardiovascular: S1/S2 and Regular Rhythm
Respiratory: Clear and Non-Labored Respirations
GI: Soft, Non Distended and Non Tender
Neurology: Awake, Alert, Oriented and No Motor Deficits
Skin: Warm, Dry and Good Color
General: Comfortable and Other (NAD)
Assessment
-
18-year-old female with history of smoking, presented to [facility] ER with fever and chills for the past 6 days. She had Tmax of 103 Fahrenheit at home. She had complained of generalized bodyaches and nausea vomiting. On arrival to the ER, chest x-ray
demonstrating bibasilar pneumonia, placed on empiric antibiotics. Blood cultures showing positive strep pyogenes. We are consulted for PNA.
Strep pyogenes bacteremia
Strep pneumonia
Fever
Generalized bodyaches
Nausea vomiting, decreased p.o. intake
Conditions present prior to admission
Bipolar disorder
Former smoker
Chronic LFT elevation
Anemia of chronic disease
Plan
Hypoxemia noted on arrival, O2 merna 88%
She was placed on 2 L nasal cannula
Currently saturating 92%
Prior history of lung disease is NOT noted-- denies family history of lung disease. 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
She also was a former smoker, total usage 4 to 6 years of 1 pack/day. She also was vaping nicotine for some period of time.
PNA noted on initial imaging on 03/28
Fever curve is improving
Obtain CT chest to evaluate progress
Blood culture with strep pyogenes
Legionella negative
ID following, placed on IV abx
Follow fever curve
No history of cardiac disease noted
No prior ECHO for review
Smoking history noted--Smoking cessation recommended
She is aware
There are case reports of vaping causing increased respiratory illness, etc
Will need outpatient pulmonary evaluation in our office for PFTs and 6MWT
Reviewed with patient
Discussed case with ID
We will follow
Diagnostic Data
Chest X-Ray: 03/28/24- Findings suggesting bilateral lower lobe pneumonia. Small left pleural effusion.
CT Scan:
Echo:
PFT's:
Reports and relevant images were personally reviewed.
Total time spent on this consultation __76__ minutes which includes review of history, physical exam, medications, laboratory data, personal review of imaging, extensive review of outpatient records, discussion with care team and respiratory therapy.
[2024-03-30] MEDS: CLEOCIN 50 IV (17:52)
[2024-03-30] MEDS: AMPICILLIN 108 MG IV ×2 (18:34→23:29)
[2024-03-30] MEDS: VENTOLIN NEBULES 2.5 MG INH (19:50)
[2024-03-30 20:03] VITALS: BP 145/67
[2024-03-30 23:36] VITALS: BP 124/89
[2024-03-31] VITALS (9 sets, daily range): BP systolic 112–133; BP diastolic 64–90; BMI 27.2
[2024-03-31] MEDS: CLEOCIN 50 IV ×3 (03:27→20:38)
[2024-03-31] MEDS: XOPENEX 0.63 MG INHALANT SOLUTION INH (04:25)
[2024-03-31] MEDS: AMPICILLIN 108 MG IV ×3 (05:14→19:12)
--- NOTE | 2024-03-31 05:46 | W.PN.HOSP.TC ---
Today's Communication/Plan
-
wean O2 as tolerated
IV lasix 40 mg once, cardio eval, ECHO
follow up abg lactic acid and CPAP as per pulm
Transfer to IMU for closer monitoring
Assessment / Plan
Assessment / Plan
Physical Exam
General: mild moderate distress d/t dyspnea headache chest tightness
CVS: S1-S2 normal
Chest: Clear to Auscultation b/l
Abdomen: Soft, NT / Bowel sounds present
Extremities: No edema, normal pulses
PRINTED CIRCUIT PHOTOGRAPHER: AOx3
Pych: Calm
18-year-old female with fever and chills. Patient stated that she was started on Lamictal as outpatient 2 weeks ago. A week ago she started getting sick with cough fever and bodyaches. Lamictal was stopped. She was started on Caplyta which she
states that she has not been taking even though parents think that she is taking it. She does not want to take antidepressants and parents force her to take it.
EKG sinus tachycardia.
# Fever chills with criteria met for sepsis on admission
#Acute hypoxic respiratory failure secondary to strep pyogenes bacteremia pneumonia-on 6 L of oxygen.
#Gram-positive cocci in pairs and chains-likely Streptococcus pneumonia
Repeat blood cultures negative so far
Infectious disease consultation appreciated
Ceftriaxone and Zithromax changed to ampicillin and clindamycin
COVID, influenza negative
Sputum culture if possible
Wean oxygen as tolerated
Continue nebulizer and incentive spirometry
Pulmonary consultation appreciated
Encouraged out of bed and up right position Instead of supine
Continue mucolytics
Pain control prn Toradol and Tramadol
#CT chest concerning for increasing b/l pleural effusions and signs suggestive pulm edema
possibly iatrogenic fluid overload vs Takotsubo
Cardio eval requested
ECHO pending
IV lasix 40 mg daily started
Daily weights, I/O
follow up ABG lactate CPAP as per pulm
Transferred to IMU for closer monitoring 03/31
#Constipation
senna/colace, hold if diarrhea
# LFT elevation-trending down
Ultrasound of the abdomen-mild hepatomegaly, mild splenomegaly. Unremarkable gallbladder
Patient also stated that she was taking Tylenol at home up to 5 g. Tylenol Lvl on admission however unremarkable.
LFTs are improving
# Depression
She recently stopped Lamictal a week ago
Patient states that she has not been taking Caplyta and does not want to take it.
monitor for now
# Vitamin D deficiency-replace
# Active smoker-cessation counseling done use nicotine patch if needed.
# DVT prophylaxis SCD
#GI ppx Protonix whileon prn Toradaol
# Full code
Discussed with patient, patient's mother Linsey, and Pulmonology
I spent a total of 50 minutes with the patient or on the floor. More than 50% of this time involved counseling and coordination of care.
Anticipated Discharge: 24 - 48 hours
Subjective/Interval History
-
Date of Service: March 31, 2024
Seen and examined at bedside dyspneic reporting chest tightness, pleuritic chest pain, headache and nausea denies vomiting abd pain. Reports constipation.
Objective Data
-
Labs:
Laboratory Results
03/31/24
06:00
WBC Pending
Hgb Pending
Hct Pending
Plt Count Pending
Sodium Pending
Potassium Pending
Chloride Pending
Carbon Dioxide Pending
BUN Pending
Creatinine Pending
Glucose Pending
Calcium Pending
Total Bilirubin Pending
AST Pending
ALT Pending
Alkaline Phosphatase Pending
Vital Signs:
Vital Signs
Temp Pulse Resp BP Pulse Ox
98.3 F 92 16 120/76 98
03/31/24 03:00 03/31/24 04:28 03/31/24 04:28 03/31/24 03:00 03/31/24 04:28
I&O
03/29/24 03/30/24 03/31/24
06:59 06:59 06:59
Intake Total 2550 / 2550 2960 / 2960
Output Total 700 / 700
Balance 1850 / 1850 2960 / 2960
[2024-03-31] MEDS: ROBITUSSIN DM 5 ML PO ×2 (06:45→19:18)
[2024-03-31] MEDS: TESSALON PERLES 100 MG PO ×2 (06:45→19:14)
[2024-03-31] MEDS: ULTRAM 25 MG PO (06:47)
[2024-03-31] MEDS: VENTOLIN NEBULES 2.5 MG INH ×4 (07:18→19:34)
[2024-03-31] MEDS: VITAMIN D3 (cholecalciferol) 50 MCG PO (08:01)
[2024-03-31] MEDS: MUCINEX 600 MG PO ×2 (08:01→20:36)
[2024-03-31] MEDS: TORADOL 15 MG IV ×3 (08:39→20:37)
[2024-03-31] MEDS: PROTONIX IV 40 MG IV (08:39)
[2024-03-31] MEDS: NSS (PRESERVATIVE FREE) 10 ML IV (08:39)
[2024-03-31] MEDS: TYLENOL 1000 MG PO (08:40)
[2024-03-31 08:44] LABS: Troponin I < 0.012 ng/ml
[2024-03-31 08:51] LABS: ALT (SGPT) 42 U/L (0-35); AST (SGOT) 20 U/L (14-36); Albumin 2.7 g/dl (3.5-5.0); Alkaline Phosphatase 145 U/L (38-126); Blood Urea Nitrogen 8 mg/dl (7-17); Calcium 8.3 mg/dl (8.4-10.2); Carbon Dioxide 25 mmol/L (22-30); Chloride 106 mmol/L (98-107); Estimated Creatinine Clearance > 125 ml/min; Glucose 94 mg/dl (70-99); Potassium 3.9 mmol/L (3.5-5.1); Sodium 138 mmol/L (135-145); Total Bilirubin 0.4 mg/dl (0.2-1.3); Total Protein 5.4 g/dl (6.3-8.2); eGFR > 60.00
[2024-03-31 08:53] LABS: Hematocrit 29.7 % (37.0-47.0); Hemoglobin 9.6 g/dL (12.0-16.0); Mean Corp Hgb Conc. 32.3 g/dL (33.0-37.0); Mean Corpuscular Hgb 30.5 pg (27.0-31.0); Mean Corpuscular Volume 94.3 fL (81.0-99.0); Mean Platelet Volume 10.2 fL (7.4-10.4); Platelet Count 306 10^3/uL (130-400); Red Blood Cell Count 3.15 10^6/uL (4.20-5.40); Red Cell Dist. Width 13.2 % (11.5-14.5); White Blood Cell Count 9.3 10^3/uL (4.8-10.8)
--- NOTE | 2024-03-31 08:59 | W.PN.PUL3 ---
Today's Communication / Plan
-
More ill appearing today, CT reviewed with new findings suggesting new cardiomyopathy
ECHO and cards eval urgently
Check ABG, lactate, placed on CPAP--reviewed with RT
Transfer to IMU, discussed with care team
Assessment
-
18-year-old female with history of smoking, presented to ER with fever and chills for the past 6 days. She had Tmax of 103 Fahrenheit at home. She had complained of generalized bodyaches and nausea vomiting. On arrival to the ER, chest x-ray
demonstrating bibasilar pneumonia, placed on empiric antibiotics. Blood cultures showing positive strep pyogenes. We are consulted for PNA.
Strep pyogenes bacteremia
Strep pneumonia
Fever
Generalized bodyaches
Nausea vomiting, decreased p.o. intake
CT with effusions, concerning for stress CM
Conditions present prior to admission
Bipolar disorder
Former smoker
Chronic LFT elevation
Anemia of chronic disease
Plan
Hypoxemia noted on arrival, O2 merna 88%
She was placed on 2 L nasal cannula--now on 6L NC
Currently saturating 92%
More lethargic this AM
Prior history of lung disease is NOT noted-- denies family history of lung disease. 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
She also was a former smoker, total usage 4 to 6 years of 1 pack/day. She also was vaping nicotine for some period of time.
PNA noted on initial imaging on 03/28
Fever curve is improving
Obtain CT chest to evaluate progress--new effusions/pericardial effusion
Concerning for takotsubo's or stress CM
ECHO stat, cards eval stat--communicated to care team to transfer to IMU
Will check ABG and lactate and trial CPAP
Blood culture with strep pyogenes
Legionella negative
ID following, placed on IV abx
Follow fever curve
No history of cardiac disease noted
No prior ECHO for review
Smoking history noted--Smoking cessation recommended
She is aware
There are case reports of vaping causing increased respiratory illness, etc
Will need outpatient pulmonary evaluation in our office for PFTs and 6MWT
Reviewed with patient
Discussed case with care team
Diagnostic Data
Chest X-Ray: 03/28/24- Findings suggesting bilateral lower lobe pneumonia. Small left pleural effusion.
CT Scan: CHEST 03/31/24- Examination is negative for pulmonary embolism. Moderate bilateral pleural effusions are present, significantly increasing since chest radiograph of March 28, 2024. Confluent parenchymal opacity involving most of both
lower lobes, with some aeration superiorly. Main differential considerations of atelectasis and/or pneumonia. Patchy parenchymal opacity throughout both lungs with central predominance. Pattern is suggestive of pulmonary edema pattern. However,
pneumonia is also possible. Also, findings could represent a combination of pulmonary edema and pneumonia. Small pericardial effusion, mainly posteriorly and inferiorly.
As warranted, consideration for further evaluation with echocardiography.
Echo: pending
PFT's:
Reports and relevant images were personally reviewed.
Total time spent on this encounter __56__ minutes which includes review of history, physical exam, medications, laboratory data, personal review of imaging, extensive review of outpatient records, discussion with care team and respiratory therapy.
Subjective Data
-
Date of Service:
Date of Service: March 31, 2024
Chief Complaint: Pulmonary Follow Up
Subjective:
No acute events ON, she feels worse this AM
On 6L NC, more lethargic appearing
Objective Data
Data Reviewed
Vital Signs / I&O / Oxygen:
Vital Signs
Temp Pulse Resp BP Pulse Ox
98.8 F 108 26 123/80 93
03/31/24 07:45 03/31/24 07:57 03/31/24 07:57 03/31/24 07:45 03/31/24 07:57
Intake and Output
03/30/24 03/31/24 04/01/24
06:59 06:59 06:59
Intake Total 2550 / 2550 2960 / 2960
Output Total 700 / 700
Balance 1850 / 1850 2960 / 2960
SaO2 93
Nasal Cannula flow liters per 6
minute
Physical Exam
General: Other (NAD, lethargic/weak)
HEENT: Normocephalic, Anicteric and Moist Mucous Membranes
Cardiovascular: S1-S2 and Regular Rhythm
Respiratory: Crackles and Non-Labored Respirations
GI: Soft, Non Distended and Non Tender
Neurology: Awake, Alert, Oriented and Lethargic
Skin: Warm, Dry and Other (pale)
Labs/Micro/Reports
Lab Data
03/31/24 07:19
03/31/24 07:19
Microbiology
03/29/24 19:45 Blood/Venous Blood Culture - Preliminary
No Growth in 24 hours- Final report to follow
03/29/24 18:34 Blood/Venous Blood Culture - Preliminary
No Growth in 24 hours- Final report to follow
03/28/24 21:54 Blood/Venous Blood Culture - Preliminary
Streptococcus pyogenes
03/28/24 21:54 Blood/Venous Gram Stain - Final
03/28/24 20:29 Urine Urine Culture - Final
03/28/24 21:54 Blood/Venous Blood Culture - Preliminary
Streptococcus pyogenes
03/28/24 21:54 Blood/Venous Gram Stain - Final
03/29/24 20:29 Urine Legionella Urinary Antigen - Final
Negative for Legionella pneumophila Serogroup 1 antigen.
A negative result does not rule out the possiblity of
Legionella infection due to other serogroups or species of
Legionella. Clinical correlation is recommended.
03/28/24 16:14 Nasal Swab Influenza Types A & B ([facility]NA[facility]) - Final
Negative for Influenza A & B, NAAT
Negative results must be combined with clinical observations
and patient history.
Nucleic Acid Amplification test (NAAT)performed on the
[employer] platform.
--- NOTE | 2024-03-31 09:57 | CM ---
tool and die manager received a consult for Advanced Directive information, pillowcase sewer met with patient and provided AD packet.
Plan; Patient to return to home with her parents when stable.
--- NOTE | 2024-03-31 10:48 | CON.CAR ---
Addendum entered and electronically signed by Onesimo Chery MD 03/31/24 17:44:
I saw and examined the patient.
The ELECTRONICS PROCESSOR's note was reviewed and I agree with the note.
Comment:
18-year-old female who presented to the emergency department on 03/28/2024 with fever. 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 She saw
her top dyeing machine tender on Saturday and was swabbed for flu, COVID, and strep which were all negative. They also sent out bacterial cultures which have since resulted as negative. She presented to the ER and was diagnosed with left lower lobe pneumonia.
She was also noted to have group A strep bacteremia on 1 set of blood cultures. She has been requiring 5-6 L nasal cannula since admission. She got a chest CT today to rule out pulmonary embolism which showed moderate bilateral pleural effusions
and pulmonary edema versus pneumonia as well as a small pericardial effusion. Cardiology was consulted given concern for heart failure. Physical exam notable for a well-appearing woman with nonlabored respirations. Breath sounds are blunted at
the bases bilaterally with no crackles. Heart is tachycardic with a regular rhythm and no murmurs, rubs, or gallops. She has a normal JVP and no lower extremity edema. Labs are notable for a white count of 9, lactate 0.9, troponin less than
0.012, proBNP 560, creatinine 0.6. Blood cultures are positive for strep pyogenes on 03/28. Subsequent blood cultures are no growth to date. Echocardiogram is notable for normal biventricular function with a small pericardial effusion and mild
aortic regurgitation.
Based on King criteria, she has 1 major criteria if we consider her mild aortic regurgitation to be new and pathologic. She has 2 minor criteria including fever and positive blood culture for strep pyogenes. We can discuss further with ID whether
or not this warrants a MATEUSZ. There are no obvious valvular vegetations on her transthoracic echocardiogram. She has no evidence of heart failure by echocardiogram, so I wonder if her pleural effusions are parapneumonic. Her small pericardial
effusion is also likely in the setting of her acute illness. There is no evidence of tamponade. We will continue to follow along.
Original Note:
Consultation
Consultation Request
Date/Time Consultation Requested: 03/31/2024 10:45
Date/Time Consultation Performed: 03/31/2024 11:00
Requesting Provider: Dr. Elder
Performing Provider: CRISSY Tovar for Dr. Chery
Reason for Consultation: Pleural effusions
Medical History
-
Chief Complaint: Fever
History of Present Illness:
Saumya Zamora is a 18-year-old female with bipolar disorder (recently discontinued Lamictal), who presented to the emergency department 03/28/2024 with a chief complaint of fever. She endorsed associated chills, malaise, nausea/vomiting, and poor
oral intake. Six days prior to admission is when symptoms started along with a headache. It progressively worsened which prompted EMS and hospitalization. Her hypoxia is requiring oxygen supplementation. Blood cultures are positive for
Streptococcus pyogenes. Subsequent blood cultures NGTD. Infectious disease has been consulted. CT did not demonstrate PE however she has moderate bilateral pleural effusions for which cardiology was consulted.
Past Medical History
Past Medical History: Psychiatric (Bipolar disorder)
Social History
Tobacco: Former Smoker
Drug: None
Personal: Single
Living: With Family
Family History
Family History: Reviewed & Not Pertinent (Denies early CAD and SCD. No known cardiomyopathy.)
Allergies / Home Medications
Allergy/AdvReac Type Severity Reaction Status Date / Time
No Known Allergies Allergy Verified 03/20/24 23:39
�Medication �Instructions �Recorded �Confirmed �Type
No Meds [No Current Medications] 03/29/24 03/29/24 History
Review of Systems
-
History Source: Patient
All other systems: Negative unless noted
Constitutional: Fever and Fatigue
EENT: No Symptoms
Respiratory: Trouble Breathing
Cardiac: No Symptoms
Abdomen/GI: Constipated
: No Symptoms
Musculoskeletal: Edema
Skin: No Symptoms
Neurological: Weakness
Endocrine: No Symptoms
Hematologic/Lymphatic: No Symptoms
Physical Exam
Vital Signs
Temp Pulse Resp BP Pulse Ox
98.8 F 108 26 123/80 93
03/31/24 07:45 03/31/24 07:57 03/31/24 07:57 03/31/24 07:45 03/31/24 07:57
Lab Results
03/31/24 07:19
03/31/24 07:19
Troponin I < 0.012 ng/ml 03/31/24 08:08
Physical Exam
General: Well Developed and Well Nourished
HEENT: Normocephalic, Anicteric and Moist Mucous Membranes
Respiratory: Rhonchi
Cardiac: S1/S2, Regular Rhythm and Peripheral Edema (Trace bilateral lower extremity edema)
Breast: Deferred by me
GI: Soft, Non Tender, Non Distended and Normal Bowel Sounds
Rectal: Deferred by Provider
Genito-urinary: No Costovertebral Tender
Musculoskeletal: No Clubbing and No Cyanosis
Skin: Warm and Dry
Neuro: AO x 3
Hematologic/Lymphatic: No Lymphadenopathy
Psych: Calm
Impression / Plan
-
IMPRESSION/PLAN: 18F with bipolar disorder (recently discontinued Lamictal), who presented to the emergency department 03/28/2024 with a chief complaint of fever.
Acute hypoxic respiratory failure - in the setting of pneumonia
-Worsening hypoxia, now up to 5L
-CT without PE but moderate bilateral pleural effusions
-Pulmonary following
-Echocardiogram today
Bacteremia
-Initial blood cultures positive for Streptococcus pyogenes, most recent NGTD
-ID following
-KING criteria TBD after TTE
Bilateral pleural effusions
-Echocardiogram today
-proBNP pending
Pericardial effusion, on CT scan - echocardiogram today
Former smoker, continued cessation recommended
Anemia, chronic, no acute blood loss
Bipolar disorder, chronic
SUBJECTIVE:
Edema looked better this morning compared to yesterday
Some shortness of breath overnight, none during consultation
Denies chest pain, productive cough, endorses body aches
DATA:
CT angiography of the chest, 03/31/2024:
Examination is negative for pulmonary embolism.
Moderate bilateral pleural effusions are present, significantly increasing since chest radiograph of March 28, 2024.
Confluent parenchymal opacity involving most of both lower lobes, with some aeration superiorly. Main differential considerations of atelectasis and/or pneumonia.
Patchy parenchymal opacity throughout both lungs with central predominance. Pattern is suggestive of pulmonary edema pattern. However, pneumonia is also possible.
Also, findings could represent a combination of pulmonary edema and pneumonia.
Small pericardial effusion, mainly posteriorly and inferiorly.
Data Reviewed
-
EKG: Report Reviewed by me (Sinus tachycardia, nonspecific T wave abnormality, rate 123)
CT Scan: Report Reviewed by me (Chest: Negative for pulmonary embolism. Moderate bilateral pleural effusions are present, significantly increasing since chest radiograph)
Labs: Labs Reviewed by me
Old Records: Reviewed
[2024-03-31] MEDS: SENOKOT-S PO (11:00)
[2024-03-31 11:13] LABS: NT-proBNP 560 pg/ml
[2024-03-31 11:20] LABS: B.E. 0.7 mmol/L; HCO3 25.4 mmol/L (21-28); O2 Saturation % 97.6 % (94-98); PCO2 40 mmHg (32-35); PO2 87 mmHg (83-108); pH 7.41 (7.35-7.45)
[2024-03-31] MEDS: LASIX 40 MG IV (11:26)
[2024-03-31 11:27] LABS: Lactic Acid 0.9 mmol/L (0.7-2.0)
[2024-03-31 11:50] LABS: Creatine Phosphokinase < 20 U/L (30-135); LDH 217 U/L (120-246)
--- NOTE | 2024-03-31 12:00 | PTCARENOTE ---
Pt transferred to IMU per orders, report given to ROXY Howard. Transferred with all belongings. Pt father at bedside and updated.
--- NOTE | 2024-03-31 12:45 | PTCARENOTE ---
1210: Patient arrived to IMU. Patient stood and pivoted from stretcher to bed with assist x1. Patient wearing 5L NC with SpO2 greater than 92%. Sinus tach on monitor. IVF running per order. Patients family at bedside. Call moreau within reach, bed in
lowest position, bed of wheels locked.
--- NOTE | 2024-03-31 13:44 | W.PN.ID1 ---
Date of Service
Date of Service: March 31, 2024
Today's Communication
Continue antibiotics.
Assessment / Plan
Left lower lobe pneumonia
Bacteremia with Group A strep
Invasive group A strep disease.
Fever
Recommendations:
Continue ampicillin 2 g IV every 6 hours / clindamycin 900 mg IV every 8 hours
Repeat blood cultures x 2 pending
Check sputum culture in case there are other organisms.
Check urinary pneumococcal antigen.
Monitor white count and temperature curve.
Monitor O2 requirements.
Patient has been moved to IMU.
����������������������������������������������������������
Chief Complaint
-: Fever, Pneumonia and Bacteremia
Subjective / Review of Systems
Patient seen and examined earlier this a.m. (9 AM). Reports increased shortness of breath overnight. Patient heading to CAT scan.
Vital Signs / Physical Exam
Vital Signs
Vital Signs
Temp Pulse Resp BP Pulse Ox
98.0 F 87 29 133/89 96
03/31/24 11:40 03/31/24 12:45 03/31/24 12:45 03/31/24 12:09 03/31/24 12:49
Physical Exam
Constitutional: No Acute Distress, Well Developed, Acutely Ill and Non-toxic
Head: Normocephalic
Eyes: Sclera Anicteric
Pulmonary: Rhonchi (Scattered throughout.), Coarse and Other (Mildly labored.)
Gastrointestinal: Soft, Non Tender and Non Distended
Neurological: Awake and Alert
Psychological: Calm
Objective Data
Lab Data
Lab Results
03/31/24 07:19
03/31/24 07:19
ESR Cancelled 03/31/24 07:19
Estimated Creat Clear > 125 ml/min 03/31/24 07:19
Lactic Acid 0.9 mmol/L (0.7-2.0) 03/31/24 10:56
Total Bilirubin 0.4 mg/dl (0.2-1.3) 03/31/24 07:19
AST 20 U/L (14-36) 03/31/24 07:19
ALT 42 U/L (0-35) H 03/31/24 07:19
Alkaline Phosphatase 145 U/L (38-126) H 03/31/24 07:19
C-Reactive Protein 243.60 mg/L (0.0-10.00) H 03/31/24 07:19
Most recent labs reviewed.
CT Scan: Image Reviewed and Report Reviewed
Micro Results:
03/28/24 21:54 Blood Culture - Preliminary
Blood/Venous Streptococcus pyogenes
Gram Stain - Final
03/28/24 21:54 Blood Culture - Preliminary
Blood/Venous Streptococcus pyogenes
Gram Stain - Final
03/29/24 19:45 Blood Culture - Preliminary
Blood/Venous No Growth in 24 hours- Final report to follow
03/30/24 17:43 Blood Culture - Pending
Blood/Venous
03/29/24 18:34 Blood Culture - Preliminary
Blood/Venous No Growth in 24 hours- Final report to follow
03/30/24 17:11 Blood Culture - Pending
Blood/Venous
03/28/24 20:29 Urine Culture - Final
Urine
03/29/24 20:29 Legionella Urinary Antigen - Final
Urine Negative for Legionella pneumophila Serogroup 1 antigen.
A negative result does not rule out the possiblity of
Legionella infection due to other serogroups or species of
Legionella. Clinical correlation is recommended.
03/28/24 16:14 Influenza Types A & B ([facility]) - Final
Nasal Swab Negative for Influenza A & B, NAAT
Negative results must be combined with clinical observations
and patient history.
Nucleic Acid Amplification test (NAAT)performed on the
[employer] platform.
Imaging:
03/31/2024 CT chest (PE study): No evidence for PE. Confluent parenchymal opacity involving most of both lower lobes, with some aeration superiorly. There is also patchy parenchymal opacity throughout both lungs with central predominance. Pattern
is suggestive of pulmonary edema pattern. Pneumonia is also possible. Please see full dictation for additional detail.
03/28/2024 CXR (2 view): No visible pneumothorax. Moderate airspace disease in the left lower lung field, and mildly in the right lower lung field concerning for pneumonia. Please see full dictation for additional detail. Film personally viewed.
[2024-03-31 14:01] LABS: Erythrocyte Sed Rate 52 mm/hour (0-20)
[2024-03-31] MEDS: SENOKOT-S 1 TABLET PO (20:36)
--- NOTE | 2024-03-31 23:00 | PTCARENOTE ---
Pt received form previous RN. pt AA0x3, slightly anxious at times. pt attempted to stand to walk to bathroom. pt RR and HR increased to 130's and 40's. Pt sat back on edge of bed to recover. pt used BSC instead. pt c/o of dry nose and congestion, polish compounder
contacted to get order for nasal spray. Assessment as documented. call light in reach.
[2024-04-01] VITALS (18 sets, daily range): BP systolic 66–134; BP diastolic 54–99; BMI 27.4
[2024-04-01] MEDS: OCEAN, SALINE MIST 2 SPRAYS NASAL ×2 (00:50→04:51)
[2024-04-01] MEDS: AMPICILLIN 108 MG IV ×5 (00:51→23:29)
[2024-04-01] MEDS: CLEOCIN 50 IV ×3 (02:32→16:56)
[2024-04-01] MEDS: TORADOL 15 MG IV ×4 (02:41→23:30)
[2024-04-01 04:39] LABS: Hematocrit 28.5 % (37.0-47.0); Hemoglobin 9.4 g/dL (12.0-16.0); Mean Corpuscular Hgb 30.6 pg (27.0-31.0); Mean Corpuscular Volume 92.8 fL (81.0-99.0); Mean Platelet Volume 9.4 fL (7.4-10.4); Platelet Count 326 10^3/uL (130-400); Red Blood Cell Count 3.07 10^6/uL (4.20-5.40); Red Cell Dist. Width 13.1 % (11.5-14.5); White Blood Cell Count 6.5 10^3/uL (4.8-10.8)
[2024-04-01 05:15] LABS: ALT (SGPT) 43 U/L (0-35); AST (SGOT) 31 U/L (14-36); Albumin 2.7 g/dl (3.5-5.0); Alkaline Phosphatase 132 U/L (38-126); Blood Urea Nitrogen 14 mg/dl (7-17); Calcium 8.6 mg/dl (8.4-10.2); Carbon Dioxide 28 mmol/L (22-30); Chloride 105 mmol/L (98-107); Estimated Creatinine Clearance > 125 ml/min; Glucose 97 mg/dl (70-99); Magnesium 2.1 mg/dl (1.6-2.3); Phosphorus 5.1 mg/dl (2.5-4.5); Potassium 4.1 mmol/L (3.5-5.1); Sodium 140 mmol/L (135-145); Total Bilirubin 0.5 mg/dl (0.2-1.3); Total Protein 5.4 g/dl (6.3-8.2); eGFR > 60.00
[2024-04-01] MEDS: TYLENOL 650 MG PO ×2 (05:31→12:56)
--- NOTE | 2024-04-01 07:01 | W.PN.HOSP.TC ---
Today's Communication/Plan
-
cont IV Lasix
wean O2 as tolerated
IR eval potential benefit Thoracentesis
cont abx as per ID
pain control
Assessment / Plan
Assessment / Plan
Physical Exam
General: no acute distress appears comfortable at this time
CVS: S1-S2 normal
Chest: Decreased lung sounds at bases b/l
Abdomen: Soft, NT / Bowel sounds present
Extremities: No edema, normal pulses
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
Pych: Calm
18-year-old female with fever and chills. Patient stated that she was started on Lamictal as outpatient 2 weeks ago. A week ago she started getting sick with cough fever and bodyaches. Lamictal was stopped. She was started on Caplyta which she
states that she has not been taking even though parents think that she is taking it. She does not want to take antidepressants and parents force her to take it.
EKG sinus tachycardia.
# Fever chills with criteria met for sepsis on admission
#Acute hypoxic respiratory failure secondary to strep pyogenes bacteremia pneumonia-on 6 L of oxygen.
#Gram-positive cocci in pairs and chains-likely Streptococcus pneumonia
Repeat blood cultures negative so far
Infectious disease consultation appreciated
Ceftriaxone and Zithromax changed to ampicillin and clindamycin cont
COVID, influenza negative
Sputum culture if possible
Wean oxygen as tolerated
Continue nebulizer and incentive spirometry
Pulmonary consultation appreciated
Encouraged out of bed and up right position Instead of supine
Continue mucolytics
Pain control prn Toradol and Tramadol
#CT chest concerning for increasing b/l pleural effusions and signs suggestive pulm edema
possibly iatrogenic fluid overload vs Takotsubo
Cardio eval appreciated
ECHO appreciated
IV lasix 40 mg daily started, cont
Daily weights, I/O
ABG lactate unremarkable
CPAP as per pulm
Transferred to IMU for closer monitoring 03/31
IR eval requested potential benefit thoracentesis
#Constipation
senna/colace, hold if diarrhea
# LFT elevation-trending down
Ultrasound of the abdomen-mild hepatomegaly, mild splenomegaly. Unremarkable gallbladder
Patient also stated that she was taking Tylenol at home up to 5 g. Tylenol Lvl on admission however unremarkable.
LFTs are improving/near resolved
# Bipolar Depression
She recently stopped Lamictal a week ago but was only on the medication for a week and a half (stopped the medication when she developed respiratory symptoms)
Declines to resume at this time. Mood otherwise appears stable at this time.
# Vitamin D deficiency-replace
# Active smoker-cessation counseling done use nicotine patch if needed.
# DVT prophylaxis SCD
#GI ppx Protonix while on prn Toradaol
# Full code
Discussed with patient, patient's mother Linsey, Pulmonology, IR, and nurse
I spent a total of 50 minutes with the patient or on the floor. More than 50% of this time involved counseling and coordination of care.
Anticipated Discharge: 24 - 48 hours
Subjective/Interval History
-
Date of Service: April 01, 2024
Briefly required NRB sudden pulse ox drop 79% per nurse. Eventually transitioned back to 6L. Patient otherwise appears more comfortable compared to yesterday. Reports some improvement in chest tightness with lasix and prn toradol
Objective Data
-
Labs:
Laboratory Results
04/01/24
04:32
WBC 6.5
Hgb 9.4 L
Hct 28.5 L
Plt Count 326
Sodium 140
Potassium 4.1
Chloride 105
Carbon Dioxide 28
BUN 14
Creatinine 0.7
Glucose 97
Calcium 8.6
Total Bilirubin 0.5
AST 31
ALT 43 H
Alkaline Phosphatase 132 H
Vital Signs:
Vital Signs
Temp Pulse Resp BP Pulse Ox
98.6 F 65 31 125/82 92
04/01/24 02:50 04/01/24 05:45 04/01/24 05:45 04/01/24 04:00 04/01/24 05:46
I&O
03/31/24 04/01/24 04/02/24
06:59 06:59 06:59
Intake Total 2960 / 2960 2270 / 2270
Output Total 600 / 600
Balance 2960 / 2960 1670 / 1670
[2024-04-01] MEDS: VENTOLIN NEBULES 2.5 MG INH ×3 (07:44→19:42)
[2024-04-01] MEDS: NSS (PRESERVATIVE FREE) 10 ML IV (08:27)
[2024-04-01] MEDS: PROTONIX IV 40 MG IV (08:27)
[2024-04-01] MEDS: TESSALON PERLES 100 MG PO ×2 (08:28→17:00)
[2024-04-01] MEDS: MUCINEX 600 MG PO ×2 (08:29→20:10)
[2024-04-01] MEDS: SENOKOT-S 1 TABLET PO ×2 (08:29→20:10)
[2024-04-01] MEDS: VITAMIN D3 (cholecalciferol) 50 MCG PO (08:30)
[2024-04-01] MEDS: LASIX 40 MG IV ×2 (08:34→16:55)
[2024-04-01] MEDS: LASIX IV (08:36)
--- NOTE | 2024-04-01 09:37 | W.PN.CD ---
Today's Communication / Plan
-
No need for MATEUSZ
Repeat echo on Saturday
Will need follow-up with us as an outpatient, which we can arrange closer to discharge
Impression / Plan
-
IMPRESSION/PLAN: 18F with bipolar disorder (recently discontinued Lamictal), who presented to the emergency department 03/28/2024 with a chief complaint of fever, found to have pneumonia with group A strep bacteremia. Cardiology is consulted for
bilateral pleural effusions.
Bilateral pleural effusions
-Suspect that these are parapneumonic in nature. Echocardiogram on 03/31 with no evidence of heart failure
-Conservative management for now
-Defer to primary team and ID re: thoracentesis to look for possible empyema
Group A strep bacteremia
-Based on King criteria she has 'possible' endocarditis (1 major criteria if we consider her mild aortic regurgitation to be new and pathologic; 2 minor criteria: fever and positive blood culture for strep pyogenes)
-She is overall improving with downtrending WBC, improving fever curve, and negative blood cultures
-For now we will defer MATEUSZ given that this is unlikely to be endocarditis. We can reconsider if her clinical status changes
-Appreciate ID input
Mild aortic regurgitation
-As above, I suspect that this is chronic and unrelated to her group A strep bacteremia
-Repeat echocardiogram on Saturday (04/03). If AR is stable, no need for MATEUSZ
-Follow-up as an outpatient with echocardiograms every 3 to 5 years
Small pericardial effusion
-Likely related to her critical illness. Echo 03/31 with no evidence of tamponade
Acute hypoxic respiratory failure - in the setting of pneumonia
-Worsening hypoxia, now up to 6L
-CT without PE but moderate bilateral pleural effusions
-Pulmonary/ID following
Former smoker, continued cessation recommended
Anemia, chronic, no acute blood loss
Bipolar disorder, chronic
SUBJECTIVE:
Had some anterior chest pressure this morning which resolved with increasing oxygen. Breathing feels stable. She has been up and out of bed a few times but it 'is not going well'. Telemetry reveals sinus rhythm with HR's 80s�120s.
DATA:
CT angiography of the chest, 03/31/2024:
Examination is negative for pulmonary embolism.
Moderate bilateral pleural effusions are present, significantly increasing since chest radiograph of March 28, 2024.
Confluent parenchymal opacity involving most of both lower lobes, with some aeration superiorly. Main differential considerations of atelectasis and/or pneumonia.
Patchy parenchymal opacity throughout both lungs with central predominance. Pattern is suggestive of pulmonary edema pattern. However, pneumonia is also possible.
Also, findings could represent a combination of pulmonary edema and pneumonia.
Small pericardial effusion, mainly posteriorly and inferiorly.
Physical Exam
Vital Signs/Labs
Vital Signs
Temp Pulse Resp BP Pulse Ox
98.4 F 103 25 134/89 99
04/01/24 07:42 04/01/24 08:15 04/01/24 08:15 04/01/24 08:15 04/01/24 08:15
03/31/24 04/01/24 04/02/24
06:59 06:59 06:59
Actual Weight 84 kg
04/01/24 04:32
04/01/24 04:32
Magnesium 2.1 mg/dl (1.6-2.3) 04/01/24 04:32
03/31/24
08:08
Twi-C-Jtnebbulsha Pept 560
LAB Results
03/31/24
08:08
Troponin I < 0.012
Physical Exam
Constitutional: No acute distress and Comfortable
Cardiovascular: Rhythm & rate is regular, Pedal edema is absent, S1S2 is normal and Murmur/rub/gallop absent
Respiratory: Respiratory effort normal and Crackles Present
Data Reviewed
-
Date of Service: April 01, 2024
Medical Decision Making: Reviewed Test Results, Independent Historian Assessment, Test Interpretation and Review of Case with other Provider
EKG: Tracing Personally Visualized and interpreted
Echo: Tracing Personally Visualized and interpreted
X-Ray/CT/US/MRI/NUC/PET: Report Reviewed by me
Labs: Labs Reviewed by me
--- NOTE | 2024-04-01 09:41 | W.PN.ID1 ---
Date of Service
Date of Service: April 01, 2024
Today's Communication
Continue antibiotics.
Assessment / Plan
Left lower lobe pneumonia
Bacteremia with Group A strep
Invasive group A strep disease.
Fever
Mild aortic regurgitation
Recommendations:
Continue ampicillin 2 g IV every 6 hours / clindamycin 900 mg IV every 8 hours (day #2)
Repeat blood cultures x 2 pending, but no growth to date.
Sputum culture found to be contaminated and rejected.
Urinary pneumococcal antigen negative.
Continue to monitor white count and temperature curve.
Monitor O2 requirements.
Grandmother updated at bedside.
����������������������������������������������������������
Chief Complaint
-: Fever, Pneumonia and Bacteremia
Subjective / Review of Systems
Patient seen and examined. Reports feeling slightly improved today. Breathing is comfortable. No fevers or chills. Chest discomfort with inspiration has somewhat improved.
Vital Signs / Physical Exam
Vital Signs
Vital Signs
Temp Pulse Resp BP Pulse Ox
98.4 F 103 25 134/89 99
04/01/24 07:42 04/01/24 08:15 04/01/24 08:15 04/01/24 08:15 04/01/24 08:15
Physical Exam
Constitutional: No Acute Distress, Well Developed, Acutely Ill and Non-toxic
Head: Normocephalic
Eyes: Sclera Anicteric
Cardiovascular: S1/S2; Negative S3/S4 or Murmur
Pulmonary: Rhonchi (Scattered throughout, but decreased from yesterday's exam), Coarse and Other (Mildly labored.)
Gastrointestinal: Soft, Non Tender and Non Distended
Skin: Warm and Dry; Negative Rash or Jaundice
Neurological: Awake and Alert
Psychological: Calm
Objective Data
Lab Data
Lab Results
04/01/24 04:32
04/01/24 04:32
ESR 52 mm/hour (0-20) H 03/31/24 07:19
ESR Cancelled 03/31/24 07:19
Estimated Creat Clear > 125 ml/min 04/01/24 04:32
Lactic Acid 0.9 mmol/L (0.7-2.0) 03/31/24 10:56
Total Bilirubin 0.5 mg/dl (0.2-1.3) 04/01/24 04:32
AST 31 U/L (14-36) 04/01/24 04:32
ALT 43 U/L (0-35) H 04/01/24 04:32
Alkaline Phosphatase 132 U/L (38-126) H 04/01/24 04:32
C-Reactive Protein 243.60 mg/L (0.0-10.00) H 03/31/24 07:19
Most recent labs reviewed.
Micro Results:
03/31/24 20:22 Respiratory Culture - Final (rejected)
Sputum Gram Stain - contaminated with oropharyngeal coleen.
03/28/24 21:54 Blood Culture - Final
Blood/Venous Streptococcus pyogenes
Gram Stain - Final
03/31/24 20:23 Streptococcus pneumoniae Antigen (M - Final
Urine Negative for Streptococcus pneumoniae antigen.
A negative result does not exclude infection with
Streptococcus pneumoniae. Clinical correlation is
recommended.
03/29/24 19:45 Blood Culture - Preliminary
Blood/Venous No Growth in 48 hours- Final report to follow
03/29/24 18:34 Blood Culture - Preliminary
Blood/Venous No Growth in 48 hours- Final report to follow
03/30/24 17:43 Blood Culture - Preliminary
Blood/Venous No Growth in 24 hours- Final report to follow
03/30/24 17:11 Blood Culture - Preliminary
Blood/Venous No Growth in 24 hours- Final report to follow
03/28/24 21:54 Blood Culture - Preliminary
Blood/Venous Streptococcus pyogenes
Gram Stain - Final
03/28/24 20:29 Urine Culture - Final
Urine
03/29/24 20:29 Legionella Urinary Antigen - Final
Urine Negative for Legionella pneumophila Serogroup 1 antigen.
A negative result does not rule out the possiblity of
Legionella infection due to other serogroups or species of
Legionella. Clinical correlation is recommended.
03/28/24 16:14 Influenza Types A & B ([facility]ANNAH) - Final
Nasal Swab Negative for Influenza A & B, NAAT
Negative results must be combined with clinical observations
and patient history.
Nucleic Acid Amplification test (NAAT)performed on the
[employer] platform.
Imaging:
03/31/2024 ECHO (TTE): Normal biventricular size and systolic function. EF approximately 60 to 65%. Mild mitral regurgitation. Mild aortic regurgitation. Mild tricuspid regurgitation. Small circumferential pericardial effusion without evidence
of tamponade. Pleural effusion is present. Please see full dictation for additional detail.
03/31/2024 CT chest (PE study): No evidence for PE. Confluent parenchymal opacity involving most of both lower lobes, with some aeration superiorly. There is also patchy parenchymal opacity throughout both lungs with central predominance. Pattern
is suggestive of pulmonary edema pattern. Pneumonia is also possible. Please see full dictation for additional detail.
03/28/2024 CXR (2 view): No visible pneumothorax. Moderate airspace disease in the left lower lung field, and mildly in the right lower lung field concerning for pneumonia. Please see full dictation for additional detail. Film personally viewed.
Care Review
Plan reviewed with: Physician (Cardiology)
[2024-04-01] MEDS: ROBITUSSIN DM 5 ML PO ×2 (10:09→16:59)
--- NOTE | 2024-04-01 10:40 | STATUS ---
SITUATION:
0815 c/o 10/29 chest heaviness and shortness of breath, pox ox alarming 79% on 5L NC
BACKGROUND:
pna
ASSESSMENT:
NRB placed for pox improved to 97%, EKG completed. AM meds given including PRNs IV Toradol, Tessalon pearls. PRN Robitussin DM also given per provider.
RECOMMENDATION:
[facility], Dr. Elder- seen by provider.
--- NOTE | 2024-04-01 10:46 | PTCARENOTE ---
Currently maintaining sao2 97% on 5L. Substernal chest pain rates 3-4/10. OOB to BSC voiding adequately. Escorting pt to [facility] now.
--- NOTE | 2024-04-01 10:50 | W.PN.PUL3 ---
Today's Communication / Plan
-
Better today, ECHO stable/small effusion noted
Lasix added, encouraged UO
Encouraged OOB, PT
Possible thora attempts, IR consult placed
Discussed with family at bedside
Assessment
-
18-year-old female with history of smoking, presented to ER with fever and chills for the past 6 days. She had Tmax of 103 Fahrenheit at home. She had complained of generalized bodyaches and nausea vomiting. On arrival to the ER, chest x-ray
demonstrating bibasilar pneumonia, placed on empiric antibiotics. Blood cultures showing positive strep pyogenes. We are consulted for PNA.
Strep pyogenes bacteremia
Strep pneumonia
Fever
Generalized bodyaches
Nausea vomiting, decreased p.o. intake
CT with effusions, concerning for stress CM
Conditions present prior to admission
Bipolar disorder
Former smoker
Chronic LFT elevation
Anemia of chronic disease
Plan
Hypoxemia noted on arrival, O2 merna 88%
She was placed on 2 L nasal cannula--now on 6L NC
Currently saturating 92%
Prior history of lung disease is NOT noted-- denies family history of lung disease. 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
She also was a former smoker, total usage 4 to 6 years of 1 pack/day. She also was vaping nicotine for some period of time.
PNA noted on initial imaging on 03/28
Fever curve is improving
Obtain CT chest to evaluate progress--new effusions/pericardial effusion
ECHO showing stable findings, small effusion no tamponade
Lasix trials
Consideration for thora per team as well
Blood culture with strep pyogenes
Legionella negative
ID following, placed on IV abx
Follow fever curve
No history of cardiac disease noted
No prior ECHO for review
Smoking history noted--Smoking cessation recommended
She is aware
There are case reports of vaping causing increased respiratory illness, etc
Will need outpatient pulmonary evaluation in our office for PFTs and 6MWT
Reviewed with patient
Discussed case with care team
Diagnostic Data
Chest X-Ray: 03/28/24- Findings suggesting bilateral lower lobe pneumonia. Small left pleural effusion.
CT Scan: CHEST 03/31/24- Examination is negative for pulmonary embolism. Moderate bilateral pleural effusions are present, significantly increasing since chest radiograph of March 28, 2024. Confluent parenchymal opacity involving most of both
lower lobes, with some aeration superiorly. Main differential considerations of atelectasis and/or pneumonia. Patchy parenchymal opacity throughout both lungs with central predominance. Pattern is suggestive of pulmonary edema pattern. However,
pneumonia is also possible. Also, findings could represent a combination of pulmonary edema and pneumonia. Small pericardial effusion, mainly posteriorly and inferiorly.
As warranted, consideration for further evaluation with echocardiography.
Echo: pending
PFT's:
Reports and relevant images were personally reviewed.
Total time spent on this encounter __51__ minutes which includes review of history, physical exam, medications, laboratory data, personal review of imaging, extensive review of outpatient records, discussion with care team and respiratory therapy.
Subjective Data
-
Date of Service:
Date of Service: April 01, 2024
Chief Complaint: Pulmonary Follow Up
Subjective:
Doing well this AM, no new events
Could not tolerate CPAP
Remains on midflow
Objective Data
Data Reviewed
Vital Signs / I&O / Oxygen:
Vital Signs
Temp Pulse Resp BP Pulse Ox
98.4 F 69 23 104/54 90
04/01/24 07:42 04/01/24 10:00 04/01/24 10:00 04/01/24 10:06 04/01/24 10:06
Intake and Output
03/31/24 04/01/24 04/02/24
06:59 06:59 06:59
Intake Total 2960 / 2960 2270 / 2270 480 / 480
Output Total 600 / 600 700 / 700
Balance 2960 / 2960 1670 / 1670 -220 / -220
SaO2 90
Nasal Cannula flow liters per 5
minute
Physical Exam
General: Comfortable and Other (NAD)
HEENT: Normocephalic, Anicteric and Moist Mucous Membranes
Cardiovascular: S1-S2 and Regular Rhythm
Respiratory: Clear and Non-Labored Respirations
GI: Soft, Non Distended and Non Tender
Neurology: Awake, Alert, Oriented and Depressed (appearing)
Skin: Warm, Dry and Other (pale)
Labs/Micro/Reports
Lab Data
04/01/24 04:32
04/01/24 04:32
Laboratory Results
03/31/24
11:03
pH 7.41
pCO2 40 H
pO2 87
HCO3 25.4
O2 Delivery Level
Microbiology
03/31/24 20:22 Sputum Respiratory Culture - Final
03/31/24 20:22 Sputum Gram Stain - Final
03/28/24 21:54 Blood/Venous Blood Culture - Final
Streptococcus pyogenes
03/28/24 21:54 Blood/Venous Gram Stain - Final
03/31/24 20:23 Urine Streptococcus pneumoniae Antigen (M - Final
Negative for Streptococcus pneumoniae antigen.
A negative result does not exclude infection with
Streptococcus pneumoniae. Clinical correlation is
recommended.
03/29/24 19:45 Blood/Venous Blood Culture - Preliminary
No Growth in 48 hours- Final report to follow
03/29/24 18:34 Blood/Venous Blood Culture - Preliminary
No Growth in 48 hours- Final report to follow
03/30/24 17:43 Blood/Venous Blood Culture - Preliminary
No Growth in 24 hours- Final report to follow
03/30/24 17:11 Blood/Venous Blood Culture - Preliminary
No Growth in 24 hours- Final report to follow
03/28/24 21:54 Blood/Venous Blood Culture - Preliminary
Streptococcus pyogenes
03/28/24 21:54 Blood/Venous Gram Stain - Final
03/28/24 20:29 Urine Urine Culture - Final
03/29/24 20:29 Urine Legionella Urinary Antigen - Final
Negative for Legionella pneumophila Serogroup 1 antigen.
A negative result does not rule out the possiblity of
Legionella infection due to other serogroups or species of
Legionella. Clinical correlation is recommended.
[2024-04-01] MEDS: VENTOLIN NEBULES INH (11:03)
[2024-04-01 12:27] LABS: Body Fluid pH 7.52
[2024-04-01 12:46] LABS: Body Fluid Mononuclear 52.9 %; Body Fluid Polymorphonuclear 47.1 %; Body Fluid WBC 1066 /CUMM
[2024-04-01 12:49] LABS: Body Fluid Second Tech EF
[2024-04-01 14:48] LABS: Body Fluid Amylase 46 U/L; Body Fluid Glucose 99 mg/dl; Body Fluid LDH 139 U/L; Body Fluid Protein < 2.0 g/dl; Body Fluid Triglycerides < 30 mg/dl
--- NOTE | 2024-04-01 16:04 | PTCARENOTE ---
Returned from [facility], Right back bandaid cdi. States much improved breathing. O2 weaned to 2L still maintaining sao2 93%.
--- NOTE | 2024-04-01 20:19 | PTCARENOTE ---
pt received from previous RN. Pt AAOx3, Pt able to talk this HS without SOB or coughing. presenting with energy. Pt on 2L, sat 95%. NSR on monitor. pt provided with supplies to brush teeth. Assessment as documented. Call light in reach.
[2024-04-02] VITALS (11 sets, daily range): BP systolic 113–145; BP diastolic 65–118; BMI 25.3
[2024-04-02] MEDS: ZOFRAN 4 MG IV (00:39)
[2024-04-02] MEDS: CLEOCIN 50 IV ×2 (01:42→11:24)
[2024-04-02 05:19] LABS: Hematocrit 28.9 % (37.0-47.0); Hemoglobin 9.4 g/dL (12.0-16.0); Mean Corp Hgb Conc. 32.5 g/dL (33.0-37.0); Mean Corpuscular Volume 92.3 fL (81.0-99.0); Mean Platelet Volume 9.4 fL (7.4-10.4); Platelet Count 376 10^3/uL (130-400); Red Blood Cell Count 3.13 10^6/uL (4.20-5.40); Red Cell Dist. Width 12.8 % (11.5-14.5); White Blood Cell Count 5.1 10^3/uL (4.8-10.8)
[2024-04-02 05:42] LABS: ALT (SGPT) 40 U/L (0-35); AST (SGOT) 31 U/L (14-36); Albumin 2.7 g/dl (3.5-5.0); Alkaline Phosphatase 118 U/L (38-126); Blood Urea Nitrogen 13 mg/dl (7-17); Calcium 8.7 mg/dl (8.4-10.2); Carbon Dioxide 31 mmol/L (22-30); Chloride 103 mmol/L (98-107); Estimated Creatinine Clearance > 125 ml/min; Glucose 94 mg/dl (70-99); Magnesium 2.2 mg/dl (1.6-2.3); Phosphorus 4.2 mg/dl (2.5-4.5); Potassium 4.1 mmol/L (3.5-5.1); Sodium 139 mmol/L (135-145); Total Bilirubin 0.5 mg/dl (0.2-1.3); Total Protein 5.6 g/dl (6.3-8.2); eGFR > 60.00
[2024-04-02] MEDS: AMPICILLIN 108 MG IV ×2 (05:48→12:09)
[2024-04-02] MEDS: TESSALON PERLES 100 MG PO (06:02)
[2024-04-02] MEDS: TYLENOL 650 MG PO (06:02)
[2024-04-02] MEDS: ROBITUSSIN DM 5 ML PO (06:02)
--- NOTE | 2024-04-02 07:07 | W.PN.HOSP.TC ---
Today's Communication/Plan
-
Wean O2 as tolerated
cont abx as per ID
Stable for downgrade to Tele
Repeat ECHO tomorrow as per Cardio
Assessment / Plan
Assessment / Plan
Physical Exam
General: no acute distress appears comfortable at this time
CVS: S1-S2 normal
Chest: Decreased lung sounds at bases b/l
Abdomen: Soft, NT / Bowel sounds present
Extremities: No edema, normal pulses
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
Pych: Calm
18-year-old female with fever and chills. Patient stated that she was started on Lamictal as outpatient 2 weeks ago. A week ago she started getting sick with cough fever and bodyaches. Lamictal was stopped. She was started on Caplyta which she
states that she has not been taking even though parents think that she is taking it. She does not want to take antidepressants and parents force her to take it.
EKG sinus tachycardia.
# Fever chills with criteria met for sepsis on admission
#Acute hypoxic respiratory failure secondary to strep pyogenes bacteremia pneumonia-on 6 L of oxygen weaned off following thoracentesis as below
#Gram-positive cocci in pairs and chains-likely Streptococcus pneumonia
Repeat blood cultures negative so far
Infectious disease consultation appreciated
Ceftriaxone and Zithromax changed to ampicillin and clindamycin, abx later narrowed to ceftriaxone 2 g IV daily planned for 14 day course with picc/midline placed for home infusion as per ID
COVID, influenza negative
No significant growth sputum culture noted
Wean oxygen as tolerated
Continue nebulizer and incentive spirometry
Pulmonary consultation appreciated
Encouraged out of bed and up right position Instead of supine
Continue mucolytics
Pain control prn Toradol and Tramadol
#CT chest concerning for increasing b/l pleural effusions and signs suggestive pulm edema
possibly iatrogenic fluid overload vs Takotsubo (less likely)
Cardio eval appreciated
ECHO appreciated
Daily weights, I/O
ABG lactate unremarkable
CPAP as per pulm
Transferred to IMU for closer monitoring 03/31 Downgraded back to Telemetry 04/02 following clinical improvement as follows
IR miguel aal appreciated right thoracentesis performed with 650 cc fluids drawn transudative, Left pleural effusion was also assessed but not enough for thoracentesis was noted
Respiratory status since significantly improved following thoracentesis weaned down from 6L to 2L
14 lb weight loss noted.
empiric IV Lasix discontinued, monitor off
#Constipation
senna/colace, hold if diarrhea
# LFT elevation-trending down
Ultrasound of the abdomen-mild hepatomegaly, mild splenomegaly. Unremarkable gallbladder
Patient also stated that she was taking Tylenol at home up to 5 g. Tylenol Lvl on admission however unremarkable.
LFTs are improving/near resolved
# Bipolar Depression
She recently stopped Lamictal a week ago but was only on the medication for a week and a half (stopped the medication when she developed respiratory symptoms)
Declines to resume at this time. Mood otherwise appears stable at this time.
# Vitamin D deficiency-replace
# Active smoker-cessation counseling done use nicotine patch if needed.
# DVT prophylaxis SCD
#GI ppx Protonix while on prn Toradaol
# Full code
Discussed with patient, patient's mother Linsey, Pulmonology, IR, Infectious Disease and nurse
I spent a total of 50 minutes with the patient or on the floor. More than 50% of this time involved counseling and coordination of care.
Anticipated Discharge: Within 24 hours
Subjective/Interval History
-
Date of Service: April 02, 2024
Significant improvement in respiratory status, chest tightness, since thoracentesis. Weaned down to 2L, overall reports feeling well. Denies new acute issues.
Objective Data
-
Labs:
Laboratory Results
04/02/24
05:04
WBC 5.1
Hgb 9.4 L
Hct 28.9 L
Plt Count 376
Sodium 139
Potassium 4.1
Chloride 103
Carbon Dioxide 31 H
BUN 13
Creatinine 0.7
Glucose 94
Calcium 8.7
Total Bilirubin 0.5
AST 31
ALT 40 H
Alkaline Phosphatase 118
Vital Signs:
Vital Signs
Temp Pulse Resp BP Pulse Ox
98.0 F 61 26 117/74 95
04/02/24 04:59 04/02/24 04:00 04/02/24 04:00 04/02/24 04:00 04/02/24 04:00
I&O
04/01/24 04/02/24 04/03/24
06:59 06:59 06:59
Intake Total 2270 / 2270 1380 / 1380
Output Total 600 / 600 2000 / 2000
Balance 1670 / 1670 -620 / -620
[2024-04-02] MEDS: VENTOLIN NEBULES 2.5 MG INH (07:36)
[2024-04-02] MEDS: NSS (PRESERVATIVE FREE) 10 ML IV (08:22)
[2024-04-02] MEDS: VITAMIN D3 (cholecalciferol) 50 MCG PO (08:22)
[2024-04-02] MEDS: MUCINEX 600 MG PO ×2 (08:22→20:52)
[2024-04-02] MEDS: SENOKOT-S 1 TABLET PO ×2 (08:22→20:52)
[2024-04-02] MEDS: PROTONIX IV 40 MG IV (08:23)
[2024-04-02] MEDS: LASIX 40 MG IV (08:23)
[2024-04-02] MEDS: VENTOLIN NEBULES INH ×3 (11:55→19:18)
--- NOTE | 2024-04-02 12:01 | PTCARENOTE ---
Patient reports breathing greatly improved. NO SOB on exertion today. Patient showered. VSS. On 2L NC, sats 96% with plan to remove O2 shortly. Patient now up in chair, encouraging more movement. Mom and Grandmom at bedside. Patient making needs
known. Will continue to closely monitor.
--- NOTE | 2024-04-02 12:07 | W.PN.PUL3 ---
Today's Communication / Plan
-
Doing well post thora, prelim counts appear transudative/culture negative
Weaned to RA, sitting in chair, feeling better
ID following -- likely to need IV abx at home, PICC line placement per team
Outpatient FU with pulmonary in 3-4 weeks, PFTs and likely needing repeat imaging
Discussed wtih patient and family
Discharge planning per team
Assessment
-
18-year-old female with history of smoking, presented to ER with fever and chills for the past 6 days. She had Tmax of 103 Fahrenheit at home. She had complained of generalized bodyaches and nausea vomiting. On arrival to the ER, chest x-ray
demonstrating bibasilar pneumonia, placed on empiric antibiotics. Blood cultures showing positive strep pyogenes. We are consulted for PNA.
Strep pyogenes bacteremia
Strep PNA
Fever
Generalized bodyaches
Nausea vomiting, decreased p.o. intake
CT with effusions, concerning for stress CM
Conditions present prior to admission
Bipolar disorder
Former smoker
Chronic LFT elevation
Anemia of chronic disease
Plan
Hypoxemia noted on arrival, O2 merna 88%
She was placed on 2 L nasal cannula--now on room air
Currently saturating >90%
Prior history of lung disease is NOT noted-- denies family history of lung disease. 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
She also was a former smoker, total usage 4 to 6 years of 1 pack/day. She also was vaping nicotine for some period of time.
PNA noted on initial imaging on 03/28
Fever curve is improving
Obtain CT chest to evaluate progress--new effusions/pericardial effusion
ECHO showing stable findings, small effusion no tamponade
Lasix trials
s/p thora, fluid indicating transudate, culture pending
Blood culture with strep pyogenes
Legionella negative
ID following, placed on IV abx
Follow fever curve
Likely to need PICC line placement and home infusion set up
Smoking history noted--Smoking cessation recommended
She is aware
There are case reports of vaping causing increased respiratory illness, etc
Will need outpatient pulmonary evaluation in our office for PFTs and 6MWT
Reviewed with patient
Discharge planning per team
Diagnostic Data
Chest X-Ray: 03/28/24- Findings suggesting bilateral lower lobe pneumonia. Small left pleural effusion.
CT Scan: CHEST 03/31/24- Examination is negative for pulmonary embolism. Moderate bilateral pleural effusions are present, significantly increasing since chest radiograph of March 28, 2024. Confluent parenchymal opacity involving most of both
lower lobes, with some aeration superiorly. Main differential considerations of atelectasis and/or pneumonia. Patchy parenchymal opacity throughout both lungs with central predominance. Pattern is suggestive of pulmonary edema pattern. However,
pneumonia is also possible. Also, findings could represent a combination of pulmonary edema and pneumonia. Small pericardial effusion, mainly posteriorly and inferiorly.
As warranted, consideration for further evaluation with echocardiography.
Echo: pending
PFT's:
Reports and relevant images were personally reviewed.
Total time spent on this encounter __51__ minutes which includes review of history, physical exam, medications, laboratory data, personal review of imaging, extensive review of outpatient records, discussion with care team and respiratory therapy.
Subjective Data
-
Date of Service:
Date of Service: April 02, 2024
Chief Complaint: Pulmonary Follow Up
Subjective:
Doing well, now on RA
No new complaints
Objective Data
Data Reviewed
Vital Signs / I&O / Oxygen:
Vital Signs
Temp Pulse Resp BP Pulse Ox
98.1 F 114 22 141/74 93
04/02/24 07:22 04/02/24 10:00 04/02/24 10:00 04/02/24 08:23 04/02/24 10:00
Intake and Output
04/01/24 04/02/24 04/03/24
06:59 06:59 06:59
Intake Total 2270 / 2270 1380 / 1380
Output Total 600 / 600 2000 / 1999
Balance 1670 / 1670 -620 / -620
SaO2 93
Nasal Cannula flow liters per 2
minute
Physical Exam
General: Comfortable and Other (NAD)
HEENT: Normocephalic, Anicteric and Moist Mucous Membranes
Cardiovascular: S1-S2 and Regular Rhythm
Respiratory: Clear and Non-Labored Respirations
GI: Soft, Non Distended and Non Tender
Neurology: Awake, Alert, Oriented and Depressed (appearing)
Skin: Warm, Dry and Other (pale)
Labs/Micro/Reports
Lab Data
04/02/24 05:04
04/02/24 05:04
Microbiology
04/01/24 11:49 Pleural Fluid Body Fluid Culture - Preliminary
No Growth After 18-24 Hours
04/01/24 11:49 Pleural Fluid Gram Stain - Preliminary
03/29/24 19:45 Blood/Venous Blood Culture - Preliminary
No Growth in 72 hours- Final report to follow
03/29/24 18:34 Blood/Venous Blood Culture - Preliminary
No Growth in 72 hours- Final report to follow
03/30/24 17:43 Blood/Venous Blood Culture - Preliminary
No Growth in 48 hours- Final report to follow
03/30/24 17:11 Blood/Venous Blood Culture - Preliminary
No Growth in 48 hours- Final report to follow
03/31/24 20:22 Sputum Respiratory Culture - Final
03/31/24 20:22 Sputum Gram Stain - Final
03/28/24 21:54 Blood/Venous Blood Culture - Final
Streptococcus pyogenes
03/28/24 21:54 Blood/Venous Gram Stain - Final
03/31/24 20:23 Urine Streptococcus pneumoniae Antigen (M - Final
Negative for Streptococcus pneumoniae antigen.
A negative result does not exclude infection with
Streptococcus pneumoniae. Clinical correlation is
recommended.
03/28/24 21:54 Blood/Venous Blood Culture - Preliminary
Streptococcus pyogenes
03/28/24 21:54 Blood/Venous Gram Stain - Final
03/28/24 20:29 Urine Urine Culture - Final
03/29/24 20:29 Urine Legionella Urinary Antigen - Final
Negative for Legionella pneumophila Serogroup 1 antigen.
A negative result does not rule out the possiblity of
Legionella infection due to other serogroups or species of
Legionella. Clinical correlation is recommended.
--- NOTE | 2024-04-02 13:21 | CM ---
Patient seen at bedside with family members in IMU. Patient for transfer to telemetry later today. Patient indicated that she was for another lung procedure and was eager to feel better. CM will continue to follow for discharge planning.
PLan; home with no needs watch for home O2 needs.
--- NOTE | 2024-04-02 13:45 | W.PN.ID1 ---
Date of Service
Date of Service: April 02, 2024
Today's Communication
Continue antibiotics. See below�
Assessment / Plan
Left lower lobe pneumonia
Bacteremia with Group A strep
Invasive group A strep disease.
Fever
Mild aortic regurgitation
Recommendations:
Narrow to ceftriaxone 2 g IV every 24 hours alone
Given severity of disease, would complete a 14-day course of IV antibiotics.
Home infusion sheet for IV ceftriaxone has been placed on paper chart.
Place PICC/midline
Continue to monitor white count and temperature curve.
Monitor O2 requirements.
Grandmother updated at bedside.
����������������������������������������������������������
Chief Complaint
-: Fever, Pneumonia and Bacteremia
Subjective / Review of Systems
Patient seen and examined. Overall feeling improved. Breathing more comfortable today. No fevers or chills.
Vital Signs / Physical Exam
Vital Signs
Vital Signs
Temp Pulse Resp BP Pulse Ox
98.1 F 81 22 113/69 94
04/02/24 07:22 04/02/24 12:14 04/02/24 12:14 04/02/24 12:14 04/02/24 12:14
Physical Exam
Constitutional: No Acute Distress, Well Developed, Acutely Ill and Non-toxic
Head: Normocephalic
Eyes: Sclera Anicteric
Cardiovascular: S1/S2; Negative S3/S4 or Murmur
Pulmonary: Coarse and Non Labored
Gastrointestinal: Soft, Non Tender and Non Distended
Skin: Warm and Dry; Negative Rash or Jaundice
Neurological: Awake and Alert
Psychological: Calm
Objective Data
Lab Data
Lab Results
04/02/24 05:04
04/02/24 05:04
ESR 52 mm/hour (0-20) H 03/31/24 07:19
ESR Cancelled 03/31/24 07:19
Estimated Creat Clear > 125 ml/min 04/02/24 05:04
Lactic Acid 0.9 mmol/L (0.7-2.0) 03/31/24 10:56
Total Bilirubin 0.5 mg/dl (0.2-1.3) 04/02/24 05:04
AST 31 U/L (14-36) 04/02/24 05:04
ALT 40 U/L (0-35) H 04/02/24 05:04
Alkaline Phosphatase 118 U/L (38-126) 04/02/24 05:04
C-Reactive Protein 243.60 mg/L (0.0-10.00) H 03/31/24 07:19
Most recent labs reviewed.
Micro Results:
04/01/24 11:49 Body Fluid Culture - Preliminary
Pleural Fluid No Growth After 18-24 Hours
Gram Stain - Preliminary
03/29/24 19:45 Blood Culture - Preliminary
Blood/Venous No Growth in 72 hours- Final report to follow
03/29/24 18:34 Blood Culture - Preliminary
Blood/Venous No Growth in 72 hours- Final report to follow
03/30/24 17:43 Blood Culture - Preliminary
Blood/Venous No Growth in 48 hours- Final report to follow
03/30/24 17:11 Blood Culture - Preliminary
Blood/Venous No Growth in 48 hours- Final report to follow
03/31/24 20:22 Respiratory Culture - Final
Sputum Gram Stain - Final
03/28/24 21:54 Blood Culture - Final
Blood/Venous Streptococcus pyogenes
Gram Stain - Final
03/31/24 20:23 Streptococcus pneumoniae Antigen (M - Final
Urine Negative for Streptococcus pneumoniae antigen.
A negative result does not exclude infection with
Streptococcus pneumoniae. Clinical correlation is
recommended.
03/28/24 21:54 Blood Culture - Preliminary
Blood/Venous Streptococcus pyogenes
Gram Stain - Final
03/28/24 20:29 Urine Culture - Final
Urine
03/29/24 20:29 Legionella Urinary Antigen - Final
Urine Negative for Legionella pneumophila Serogroup 1 antigen.
A negative result does not rule out the possiblity of
Legionella infection due to other serogroups or species of
Legionella. Clinical correlation is recommended.
03/28/24 16:14 Influenza Types A & B ([facility]) - Final
Nasal Swab Negative for Influenza A & B, NAAT
Negative results must be combined with clinical observations
and patient history.
Nucleic Acid Amplification test (NAAT)performed on the
[employer] platform.
Imaging:
03/31/2024 ECHO (TTE): Normal biventricular size and systolic function. EF approximately 60 to 65%. Mild mitral regurgitation. Mild aortic regurgitation. Mild tricuspid regurgitation. Small circumferential pericardial effusion without evidence
of tamponade. Pleural effusion is present. Please see full dictation for additional detail.
03/31/2024 CT chest (PE study): No evidence for PE. Confluent parenchymal opacity involving most of both lower lobes, with some aeration superiorly. There is also patchy parenchymal opacity throughout both lungs with central predominance. Pattern
is suggestive of pulmonary edema pattern. Pneumonia is also possible. Please see full dictation for additional detail.
03/28/2024 CXR (2 view): No visible pneumothorax. Moderate airspace disease in the left lower lung field, and mildly in the right lower lung field concerning for pneumonia. Please see full dictation for additional detail. Film personally viewed.
[2024-04-02] MEDS: ROCEPHIN 2000 MG IV (17:16)
[2024-04-02] MEDS: STERILE WATER FOR INJECTION 20 ML IV (17:17)
[2024-04-03 03:45] VITALS: BP 115/56
[2024-04-03 06:27] LABS: ALT (SGPT) 36 U/L (0-35); AST (SGOT) 28 U/L (14-36); Albumin 2.8 g/dl (3.5-5.0); Alkaline Phosphatase 115 U/L (38-126); Blood Urea Nitrogen 15 mg/dl (7-17); Calcium 8.8 mg/dl (8.4-10.2); Carbon Dioxide 26 mmol/L (22-30); Chloride 104 mmol/L (98-107); Estimated Creatinine Clearance > 125 ml/min; Glucose 88 mg/dl (70-99); Magnesium 2.1 mg/dl (1.6-2.3); Phosphorus 3.9 mg/dl (2.5-4.5); Potassium 4.4 mmol/L (3.5-5.1); Sodium 139 mmol/L (135-145); Total Bilirubin 0.4 mg/dl (0.2-1.3); eGFR > 60.00
[2024-04-03 06:41] LABS: Hemoglobin 10.2 g/dL (12.0-16.0); Mean Corp Hgb Conc. 32.9 g/dL (33.0-37.0); Mean Corpuscular Hgb 30.4 pg (27.0-31.0); Mean Corpuscular Volume 92.5 fL (81.0-99.0); Mean Platelet Volume 9.7 fL (7.4-10.4); Platelet Count 478 10^3/uL (130-400); Red Blood Cell Count 3.35 10^6/uL (4.20-5.40); Red Cell Dist. Width 12.8 % (11.5-14.5); White Blood Cell Count 6.5 10^3/uL (4.8-10.8)
[2024-04-03 06:44] VITALS: BMI 25.6
[2024-04-03 07:30] VITALS: BP 125/84
[2024-04-03] MEDS: MUCINEX 600 MG PO ×2 (07:51→20:32)
[2024-04-03] MEDS: VITAMIN D3 (cholecalciferol) 50 MCG PO (07:51)
[2024-04-03] MEDS: PROTONIX 40 MG PO (07:51)
[2024-04-03] MEDS: SENOKOT-S 1 TABLET PO (07:51)
--- NOTE | 2024-04-03 09:55 | W.PN.ID1 ---
Date of Service
Date of Service: April 03, 2024
Today's Communication
Continue antibiotics.
Assessment / Plan
Left lower lobe pneumonia
Bacteremia with Group A strep
Invasive group A strep disease.
Fever
Mild aortic regurgitation
Recommendations:
Continue with ceftriaxone 2 g IV every 24 hours alone
Given severity of disease, would complete a 14-day course of IV antibiotics.
Home infusion sheet for IV ceftriaxone has been placed on paper chart.
Midline placed.
Will follow-up in the office in 1 to 2 weeks.
Patient advised to call me immediately if there is any change to her pulmonary status, including increasing cough, or the development of increasing shortness of breath or any hemoptysis.
����������������������������������������������������������
Chief Complaint
-: Fever, Pneumonia and Bacteremia
Subjective / Review of Systems
Patient seen and examined. Overall feels well. No shortness of breath. Minimal cough.
Review of Systems: No Fever and No Chills
Vital Signs / Physical Exam
Vital Signs
Vital Signs
Temp Pulse Resp BP Pulse Ox
99.0 F 75 20 125/84 95
04/03/24 07:30 04/03/24 07:30 04/03/24 07:30 04/03/24 07:30 04/03/24 08:15
Physical Exam
Constitutional: No Acute Distress, Well Developed, Acutely Ill and Non-toxic
Head: Normocephalic
Eyes: Sclera Anicteric
Pulmonary: Non Labored
Gastrointestinal: Non Distended
Skin: Negative Rash or Jaundice
Neurological: Awake and Alert
Psychological: Calm
Lines: PICC (Right upper extremity midline)
Objective Data
Lab Data
Lab Results
04/03/24 05:37
04/03/24 05:37
ESR 52 mm/hour (0-20) H 03/31/24 07:19
ESR Cancelled 03/31/24 07:19
Estimated Creat Clear > 125 ml/min 04/03/24 05:37
Lactic Acid 0.9 mmol/L (0.7-2.0) 03/31/24 10:56
Total Bilirubin 0.4 mg/dl (0.2-1.3) 04/03/24 05:37
AST 28 U/L (14-36) 04/03/24 05:37
ALT 36 U/L (0-35) H 04/03/24 05:37
Alkaline Phosphatase 115 U/L (38-126) 04/03/24 05:37
C-Reactive Protein 243.60 mg/L (0.0-10.00) H 03/31/24 07:19
Most recent labs reviewed.
Micro Results:
04/01/24 11:49 Body Fluid Culture - Preliminary
Pleural Fluid No Growth After 48 Hours
Gram Stain - Preliminary
03/29/24 19:45 Blood Culture - Preliminary
Blood/Venous No Growth in 4 days- Final report to follow
03/29/24 18:34 Blood Culture - Preliminary
Blood/Venous No Growth in 4 days- Final report to follow
03/30/24 17:43 Blood Culture - Preliminary
Blood/Venous No Growth in 72 hours- Final report to follow
03/30/24 17:11 Blood Culture - Preliminary
Blood/Venous No Growth in 72 hours- Final report to follow
03/31/24 20:22 Respiratory Culture - Final
Sputum Gram Stain - Final
03/28/24 21:54 Blood Culture - Final
Blood/Venous Streptococcus pyogenes
Gram Stain - Final
03/31/24 20:23 Streptococcus pneumoniae Antigen (M - Final
Urine Negative for Streptococcus pneumoniae antigen.
A negative result does not exclude infection with
Streptococcus pneumoniae. Clinical correlation is
recommended.
03/28/24 21:54 Blood Culture - Preliminary
Blood/Venous Streptococcus pyogenes
Gram Stain - Final
03/28/24 20:29 Urine Culture - Final
Urine
03/29/24 20:29 Legionella Urinary Antigen - Final
Urine Negative for Legionella pneumophila Serogroup 1 antigen.
A negative result does not rule out the possiblity of
Legionella infection due to other serogroups or species of
Legionella. Clinical correlation is recommended.
03/28/24 16:14 Influenza Types A & B ([facility]) - Final
Nasal Swab Negative for Influenza A & B, NAAT
Negative results must be combined with clinical observations
and patient history.
Nucleic Acid Amplification test (NAAT)performed on the
[employer] platform.
Imaging:
03/31/2024 ECHO (TTE): Normal biventricular size and systolic function. EF approximately 60 to 65%. Mild mitral regurgitation. Mild aortic regurgitation. Mild tricuspid regurgitation. Small circumferential pericardial effusion without evidence
of tamponade. Pleural effusion is present. Please see full dictation for additional detail.
03/31/2024 CT chest (PE study): No evidence for PE. Confluent parenchymal opacity involving most of both lower lobes, with some aeration superiorly. There is also patchy parenchymal opacity throughout both lungs with central predominance. Pattern
is suggestive of pulmonary edema pattern. Pneumonia is also possible. Please see full dictation for additional detail.
03/28/2024 CXR (2 view): No visible pneumothorax. Moderate airspace disease in the left lower lung field, and mildly in the right lower lung field concerning for pneumonia. Please see full dictation for additional detail. Film personally viewed.
--- NOTE | 2024-04-03 10:24 | W.PN.PUL3 ---
Today's Communication / Plan
-
Doing well, stable on RA
Picc line placed, awaiting home infusion set up, CM following
Encouraged OOB, PT
OP Pulm FU, placed in chart
Discharge planning per team
We will sign off at this time, please call with questions
Assessment
-
18-year-old female with history of smoking, presented to ER with fever and chills for the past 6 days. She had Tmax of 103 Fahrenheit at home. She had complained of generalized bodyaches and nausea vomiting. On arrival to the ER, chest x-ray
demonstrating bibasilar pneumonia, placed on empiric antibiotics. Blood cultures showing positive strep pyogenes. We are consulted for PNA.
Strep pyogenes bacteremia
Strep PNA
Fever
Generalized bodyaches
Nausea vomiting, decreased p.o. intake
CT with effusions, concerning for stress CM
Conditions present prior to admission
Bipolar disorder
Former smoker
Chronic LFT elevation
Anemia of chronic disease
Plan
Hypoxemia noted on arrival, O2 merna 88%
She was placed on 2 L nasal cannula--now on room air
Currently saturating >90%
Prior history of lung disease is NOT noted-- denies family history of lung disease. 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
She also was a former smoker, total usage 4 to 6 years of 1 pack/day. She also was vaping nicotine for some period of time.
PNA noted on initial imaging on 03/28
Fever curve is improving
Obtain CT chest to evaluate progress--new effusions/pericardial effusion
ECHO showing stable findings, small effusion no tamponade
Lasix trials
s/p thora, fluid indicating transudate, culture pending
Blood culture with strep pyogenes
Legionella negative
ID following, placed on IV abx
Follow fever curve
PICC line placed CM FU for infusion set up at home
Smoking history noted--Smoking cessation recommended
She is aware
There are case reports of vaping causing increased respiratory illness, etc
Will need outpatient pulmonary evaluation in our office for PFTs and 6MWT
Reviewed with patient
Discharge planning per team
Diagnostic Data
Chest X-Ray: 03/28/24- Findings suggesting bilateral lower lobe pneumonia. Small left pleural effusion.
CT Scan: CHEST 03/31/24- Examination is negative for pulmonary embolism. Moderate bilateral pleural effusions are present, significantly increasing since chest radiograph of March 28, 2024. Confluent parenchymal opacity involving most of both
lower lobes, with some aeration superiorly. Main differential considerations of atelectasis and/or pneumonia. Patchy parenchymal opacity throughout both lungs with central predominance. Pattern is suggestive of pulmonary edema pattern. However,
pneumonia is also possible. Also, findings could represent a combination of pulmonary edema and pneumonia. Small pericardial effusion, mainly posteriorly and inferiorly.
As warranted, consideration for further evaluation with echocardiography.
Echo: pending
PFT's:
Reports and relevant images were personally reviewed.
Total time spent on this encounter __36__ minutes which includes review of history, physical exam, medications, laboratory data, personal review of imaging, extensive review of outpatient records, discussion with care team and respiratory therapy.
Subjective Data
-
Date of Service:
Date of Service: April 03, 2024
Chief Complaint: Pulmonary Follow Up
Subjective:
No new complaints, stable on RA
PICC in place, awaiting RN set up at home
Objective Data
Data Reviewed
Vital Signs / I&O / Oxygen:
Vital Signs
Temp Pulse Resp BP Pulse Ox
99.0 F 75 20 125/84 95
04/03/24 07:30 04/03/24 07:30 04/03/24 07:30 04/03/24 07:30 04/03/24 08:15
Intake and Output
04/02/24 04/03/24 04/04/24
06:59 06:59 06:59
Intake Total 1380 / 1380 1440 / 1440
Output Total 1999
Balance -620 / -620 1440 / 1440
SaO2 95
Nasal Cannula flow liters per 2
minute
Physical Exam
General: Comfortable and Other (NAD)
HEENT: Normocephalic, Anicteric and Moist Mucous Membranes
Cardiovascular: S1-S2 and Regular Rhythm
Respiratory: Clear and Non-Labored Respirations
GI: Soft, Non Distended and Non Tender
Neurology: Awake, Alert, Oriented and Depressed (appearing)
Skin: Warm, Dry and Other (pale)
Labs/Micro/Reports
Lab Data
04/03/24 05:37
04/03/24 05:37
Microbiology
04/01/24 11:49 Pleural Fluid Body Fluid Culture - Preliminary
No Growth After 48 Hours
04/01/24 11:49 Pleural Fluid Gram Stain - Preliminary
03/29/24 19:45 Blood/Venous Blood Culture - Preliminary
No Growth in 4 days- Final report to follow
03/29/24 18:34 Blood/Venous Blood Culture - Preliminary
No Growth in 4 days- Final report to follow
03/30/24 17:43 Blood/Venous Blood Culture - Preliminary
No Growth in 72 hours- Final report to follow
03/30/24 17:11 Blood/Venous Blood Culture - Preliminary
No Growth in 72 hours- Final report to follow
03/31/24 20:22 Sputum Respiratory Culture - Final
03/31/24 20:22 Sputum Gram Stain - Final
03/28/24 21:54 Blood/Venous Blood Culture - Final
Streptococcus pyogenes
03/28/24 21:54 Blood/Venous Gram Stain - Final
03/31/24 20:23 Urine Streptococcus pneumoniae Antigen (M - Final
Negative for Streptococcus pneumoniae antigen.
A negative result does not exclude infection with
Streptococcus pneumoniae. Clinical correlation is
recommended.
03/28/24 21:54 Blood/Venous Blood Culture - Preliminary
Streptococcus pyogenes
03/28/24 21:54 Blood/Venous Gram Stain - Final
--- NOTE | 2024-04-03 10:25 | W.PN.CD ---
Today's Communication / Plan
-
Aortic regurgitation and pericardial effusion are stable on echo.
Low suspicion for endocarditis. No need for MATEUSZ.
Our senior front end engineer office will schedule her for follow-up in 6 months to reimage pericardial effusion
Cardiology will sign off at this time. Please call back with any further questions or concerns.
Impression / Plan
-
IMPRESSION/PLAN: 18F with bipolar disorder (recently discontinued Lamictal), who presented to the emergency department 03/28/2024 with a chief complaint of fever, found to have pneumonia with group A strep bacteremia. Cardiology is consulted for
bilateral pleural effusions.
Bilateral pleural effusions, improving
-Suspect that these are parapneumonic in nature. Echocardiogram with normal biventricular function
-Conservative management for now
-Defer to primary team and ID re: thoracentesis to look for possible empyema
Group A strep bacteremia
-Based on King criteria she has 'possible' endocarditis (1 major criteria if we consider her mild aortic regurgitation to be new and pathologic; 2 minor criteria: fever and positive blood culture for strep pyogenes)
-She is overall improving with downtrending WBC, improving fever curve, and negative blood cultures
-Her aortic regurgitation is stable on echocardiogram, so I do not suspect undertreated endocarditis. No indication for MATEUSZ at this time.
Mild aortic regurgitation
-As above, I suspect that this is chronic and unrelated to her group A strep bacteremia
-Follow-up as an outpatient with echocardiograms every 3 to 5 years
Small pericardial effusion
-Likely related to her critical illness. Stable on serial echoes
-Follow-up as an outpatient
SUBJECTIVE:
Reports breathing is better this morning. She is now off of supplemental oxygen.
DATA:
CT angiography of the chest, 03/31/2024:
Examination is negative for pulmonary embolism.
Moderate bilateral pleural effusions are present, significantly increasing since chest radiograph of March 28, 2024.
Confluent parenchymal opacity involving most of both lower lobes, with some aeration superiorly. Main differential considerations of atelectasis and/or pneumonia.
Patchy parenchymal opacity throughout both lungs with central predominance. Pattern is suggestive of pulmonary edema pattern. However, pneumonia is also possible.
Also, findings could represent a combination of pulmonary edema and pneumonia.
Small pericardial effusion, mainly posteriorly and inferiorly.
Physical Exam
Vital Signs/Labs
Vital Signs
Temp Pulse Resp BP Pulse Ox
99.0 F 75 20 125/84 95
04/03/24 07:30 04/03/24 07:30 04/03/24 07:30 04/03/24 07:30 04/03/24 08:15
04/02/24 04/03/24 04/04/24
06:59 06:59 06:59
Actual Weight 77.6 kg 78.613 kg
04/03/24 05:37
04/03/24 05:37
Magnesium 2.1 mg/dl (1.6-2.3) 04/03/24 05:37
03/31/24
08:08
[id number] Pept 560
Physical Exam
Constitutional: No acute distress and Comfortable
Cardiovascular: Rhythm & rate is regular, Pedal edema is absent, JVD pressure is normal, S1S2 is normal and Murmur/rub/gallop absent
Respiratory: Respiratory effort normal and Lungs clear to auscul.
Data Reviewed
-
Date of Service: April 03, 2024
Medical Decision Making: Reviewed Test Results, Independent Historian Assessment, Test Interpretation and Review of Case with other Provider
EKG: Tracing Personally Visualized and interpreted
Echo: Tracing Personally Visualized and interpreted
Labs: Labs Reviewed by me
--- NOTE | 2024-04-03 11:20 | W.PN.HOSP.TC ---
Today's Communication/Plan
-
Ok to dc telemetry
cont abx
medically stable for discharge pending home infusion set up
Assessment / Plan
Assessment / Plan
Physical Exam
General: no acute distress appears comfortable at this time
CVS: S1-S2 normal
Chest: Decreased lung sounds at bases b/l
Abdomen: Soft, NT / Bowel sounds present
Extremities: No edema, normal pulses
PATTERN MARKER: AOx3
Pych: Calm
18-year-old female with fever and chills. Patient stated that she was started on Lamictal as outpatient 2 weeks ago. A week ago she started getting sick with cough fever and bodyaches. Lamictal was stopped. She was started on Caplyta which she
states that she has not been taking even though parents think that she is taking it. She does not want to take antidepressants and parents force her to take it.
EKG sinus tachycardia.
# Fever chills with criteria met for sepsis on admission
#Acute hypoxic respiratory failure secondary to strep pyogenes bacteremia pneumonia-on 6 L of oxygen weaned off following thoracentesis as below
#Gram-positive cocci in pairs and chains-likely Streptococcus pneumonia
Repeat blood cultures negative so far
Infectious disease consultation appreciated
Ceftriaxone and Zithromax changed to ampicillin and clindamycin, abx later narrowed to ceftriaxone 2 g IV daily planned for 14 day course with picc/midline placed for home infusion as per ID
COVID, influenza negative
No significant growth sputum culture noted
Weaned off oxygen supplementation to room air
Continue nebulizer and incentive spirometry
Pulmonary consultation appreciated
Encouraged out of bed and up right position Instead of supine
Continue mucolytics
Pain control prn Toradol and Tramadol
#CT chest concerning for increasing b/l pleural effusions and signs suggestive pulm edema
possibly iatrogenic fluid overload vs Takotsubo (less likely)
Cardio eval appreciated
ECHO appreciated
Daily weights, I/O
ABG lactate unremarkable
CPAP as per pulm
Transferred to IMU for closer monitoring 03/31 Downgraded back to Telemetry 04/02 following clinical improvement as follows
SHERRON osborne appreciated right thoracentesis performed with 650 cc fluids drawn transudative, Left pleural effusion was also assessed but not enough for thoracentesis was noted
Respiratory status since significantly improved following thoracentesis weaned down from 6L to 2L, eventually weaned off to room air
14 lb weight loss noted.
empiric IV Lasix discontinued, monitor off
#Constipation
senna/colace, hold if diarrhea
# LFT elevation-trending down
Ultrasound of the abdomen-mild hepatomegaly, mild splenomegaly. Unremarkable gallbladder
Patient also stated that she was taking Tylenol at home up to 5 g. Tylenol Lvl on admission however unremarkable.
LFTs are improving/near resolved
# Bipolar Depression
She recently stopped Lamictal a week ago but was only on the medication for a week and a half (stopped the medication when she developed respiratory symptoms)
Declines to resume at this time. Mood otherwise appears stable at this time.
# Vitamin D deficiency-replace
# Active smoker-cessation counseling done use nicotine patch if needed.
# DVT prophylaxis SCD
#GI ppx Protonix while on prn Toradaol
# Full code
Medically stable for discharge pending home infusion set up
I spent a total of 45 minutes with the patient or on the floor. More than 50% of this time involved counseling and coordination of care.
Anticipated Discharge: Within 24 hours
Subjective/Interval History
-
Date of Service: April 03, 2024
Weaned off oxygen supplementation, stable respiratory status on room air. Overall reports feeling well. Denies new acute issues. Patient's mother Linsey present during evaluation.
Objective Data
-
Labs:
Laboratory Results
04/03/24
05:37
WBC 6.5
Hgb 10.2 L
Hct 31.0 L
Plt Count 478 H D
Sodium 139
Potassium 4.4
Chloride 104
Carbon Dioxide 26
BUN 15
Creatinine 0.7
Glucose 88
Calcium 8.8
Total Bilirubin 0.4
AST 28
ALT 36 H
Alkaline Phosphatase 115
Vital Signs:
Vital Signs
Temp Pulse Resp BP Pulse Ox
99.0 F 75 20 125/84 95
04/03/24 07:30 04/03/24 07:30 04/03/24 07:30 04/03/24 07:30 04/03/24 08:15
I&O
04/02/24 04/03/24 04/04/24
06:59 06:59 06:59
Intake Total 1380 / 1380 1440 / 1440
Output Total 1999 / 1999
Balance -620 / -620 1440 / 1440
[2024-04-03 11:30] VITALS: BP 116/77
--- NOTE | 2024-04-03 14:42 | CM ---
Addendum entered by Neha Somers 04/03/24 16:57:
[facility] will call bottle caser tomorrow, 04/04/24, if they can support home infusion services over the weekend
[facility] can support nursing; insurance verified; $400 deductible then pays 100%; Vendor will bill the insurance company first
Mother, Linsey, notified via phone # [phone]
Original Note:
CM spoke with patient's mother via phone; explained that patient was ordered Home IV antibiotics therapy; identified agency options; referral sent to [facility]
Script, demographics and clinicals faxed to [facility]; fax # [phone]
Possible DC tomorrow after daily dose of ABX. Patient's mother is the salesperson art objects
Plan: Discharge to home with [facility]
[2024-04-03 15:45] VITALS: BP 124/79
[2024-04-03] MEDS: STERILE WATER FOR INJECTION 20 ML IV (17:10)
[2024-04-03] MEDS: ROCEPHIN 2000 MG IV (17:10)
[2024-04-03] MEDS: SENOKOT-S PO ×2 (20:32→20:39)
[2024-04-03 23:00] VITALS: BP 117/79
[2024-04-04 06:00] VITALS: BMI 25.6
--- NOTE | 2024-04-04 07:19 | W.PN.HOSP.TC ---
Today's Communication/Plan
-
discharge today after IV abx
Assessment / Plan
Assessment / Plan
Physical Exam
General: no acute distress appears comfortable at this time
CVS: S1-S2 normal
Chest: Clear to auscultation b/l
Abdomen: Soft, NT / Bowel sounds present
Extremities: No edema, normal pulses
IRON GUARDRAIL INSTALLER: AOx3
Pych: Calm
18-year-old female with fever and chills here for sepsis pna strep pyogenes bacteremia.
# Fever chills with criteria met for sepsis on admission
#Acute hypoxic respiratory failure secondary to strep pyogenes bacteremia pneumonia-on 6 L of oxygen weaned off following thoracentesis as below
#Gram-positive cocci in pairs and chains-likely Streptococcus pneumonia
Repeat blood cultures negative so far
Infectious disease consultation appreciated
Ceftriaxone and Zithromax changed to ampicillin and clindamycin, abx later narrowed to ceftriaxone 2 g IV daily planned for 14 day course with picc/midline placed for home infusion as per ID
COVID, influenza negative
No significant growth sputum culture noted
Weaned off oxygen supplementation to room air
Continue nebulizer and incentive spirometry
Pulmonary consultation appreciated outpt follow up recommended
Encouraged out of bed and up right position Instead of supine
Continue mucolytics
Pain control prn Toradol and Tramadol
#CT chest concerning for increasing b/l pleural effusions and signs suggestive pulm edema
Likely iatrogenic fluid overload
ECHO appreciated EF 60-65% mild aortic regurgitation small pericardial effusion w/o evidence Tamponade
Cardio eval appreciated outpt follow up in 6 months to repeat ECHO follow up pericardial effusion
Daily weights, I/O
ABG lactate unremarkable
CPAP as per pulm
Transferred to IMU for closer monitoring 03/31 Downgraded back to Telemetry 04/02 following clinical improvement as follows
IR eval appreciated right thoracentesis performed with 650 cc fluids drawn transudative, Left pleural effusion was also assessed but not enough for thoracentesis was noted
Respiratory status since significantly improved following thoracentesis weaned down from 6L to 2L, eventually weaned off to room air
14 lb weight loss noted.
empiric IV Lasix discontinued, stable off
#Constipation resolved
# LFT elevation-trended down/resolved
Ultrasound of the abdomen-mild hepatomegaly, mild splenomegaly. Unremarkable gallbladder
Patient also stated that she was taking Tylenol at home up to 5 g. Tylenol Lvl on admission however unremarkable.
# Bipolar Depression
She stopped Lamictal (originally attributed her respiratory symptoms to the medication) but was only on the medication for a week and a half.
Declines to resume at this time. Mood otherwise appears stable at this time.
# Vitamin D deficiency-replace
# Active smoker- counseled smoking cessation
# DVT prophylaxis SCD
#GI ppx Protonix while on prn Toradaol
# Full code
case mgmt consult appreciated confirmed home infusion setup.
Medically stable for discharge home with outpatient follow up recommendations.
Total Time Preparing Discharge ___40____ minutes including examination of the patient, summary of the hospital stay, instructions for continuing care to all relevant caregivers; and preparation of discharge records, prescriptions, and referral
forms if necessary.
Anticipated Discharge: Today
Subjective/Interval History
-
Date of Service: April 04, 2024
No acute distress. Reports feeling well. Denies new acute issues at this time. Eager to go home.
Objective Data
-
Vital Signs:
Vital Signs
Temp Pulse Resp BP Pulse Ox
98.6 F 66 16 117/79 95
04/03/24 23:00 04/03/24 23:00 04/03/24 23:00 04/03/24 23:00 04/03/24 23:00
I&O
04/03/24 04/04/24 04/05/24
06:59 06:59 06:59
Intake Total 1440 / 1440 1440 / 1440
Balance 1440 / 1440 1440 / 1440
[2024-04-04 08:00] VITALS: BP 124/84
[2024-04-04] MEDS: MUCINEX 600 MG PO (09:55)
[2024-04-04] MEDS: SENOKOT-S PO ×2 (09:56→10:03)
[2024-04-04] MEDS: PROTONIX 40 MG PO (09:56)
[2024-04-04] MEDS: VITAMIN D3 (cholecalciferol) 50 MCG PO (09:56)
--- NOTE | 2024-04-04 15:06 | W.PN.ID1 ---
Date of Service
Date of Service: April 04, 2024
Today's Communication
Continue ceftriaxone.
DC home when home IV abx set up.
Assessment / Plan
Left lower lobe pneumonia
Bacteremia with Group A strep
Invasive group A strep disease.
Fever
Mild aortic regurgitation
Recommendations:
Continue with ceftriaxone 2 g IV every 24 hours.
Given severity of disease, would complete a 14-day course of IV antibiotics.
Home infusion sheet for IV ceftriaxone has been placed on paper chart.
Midline placed.
Will follow-up in the office in 1 to 2 weeks.
Patient advised to call immediately if there is any change to her pulmonary status, including increasing cough, or the development of increasing shortness of breath or any hemoptysis.
����������������������������������������������������������
Chief Complaint
-: Fever, Pneumonia and Bacteremia
Subjective / Review of Systems
Cough is improving.
Vital Signs / Physical Exam
Vital Signs
Vital Signs
Temp Pulse Resp BP Pulse Ox
98.2 F 74 12 124/84 92
04/04/24 08:00 04/04/24 08:00 04/04/24 08:00 04/04/24 08:00 04/04/24 10:03
Physical Exam
Constitutional: No Acute Distress, Well Developed and Non-toxic
Eyes: Sclera Anicteric
Pulmonary: Rales (left base) and Non Labored
Gastrointestinal: Non Distended
Neurological: Awake and Alert
Psychological: Calm
Lines: PICC (Right upper extremity midline)
Objective Data
Lab Data
Lab Results
04/03/24 05:37
04/03/24 05:37
ESR 52 mm/hour (0-20) H 03/31/24 07:19
ESR Cancelled 03/31/24 07:19
Estimated Creat Clear > 125 ml/min 12/13/24 05:37
Lactic Acid 0.9 mmol/L (0.7-2.0) 03/31/24 10:56
Total Bilirubin 0.4 mg/dl (0.2-1.3) 04/03/24 05:37
AST 28 U/L (14-36) 04/03/24 05:37
ALT 36 U/L (0-35) H 04/03/24 05:37
Alkaline Phosphatase 115 U/L (38-126) 04/03/24 05:37
C-Reactive Protein 243.60 mg/L (0.0-10.00) H 03/31/24 07:19
Most recent labs reviewed.
Micro Results:
04/01/24 11:49 Body Fluid Culture - Final
Pleural Fluid No Growth After 72 Hours
Gram Stain - Final
03/28/24 21:54 Blood Culture - Final
Blood/Venous Streptococcus pyogenes
Gram Stain - Final
03/29/24 19:45 Blood Culture - Final
Blood/Venous No Growth - Final Report
03/29/24 18:34 Blood Culture - Final
Blood/Venous No Growth - Final Report
03/30/24 17:43 Blood Culture - Preliminary
Blood/Venous No Growth in 4 days- Final report to follow
03/30/24 17:11 Blood Culture - Preliminary
Blood/Venous No Growth in 4 days- Final report to follow
03/31/24 20:22 Respiratory Culture - Final
Sputum Gram Stain - Final
03/28/24 21:54 Blood Culture - Final
Blood/Venous Streptococcus pyogenes
Gram Stain - Final
03/31/24 20:23 Streptococcus pneumoniae Antigen (M - Final
Urine Negative for Streptococcus pneumoniae antigen.
A negative result does not exclude infection with
Streptococcus pneumoniae. Clinical correlation is
recommended.
03/28/24 20:29 Urine Culture - Final
Urine
03/29/24 20:29 Legionella Urinary Antigen - Final
Urine Negative for Legionella pneumophila Serogroup 1 antigen.
A negative result does not rule out the possiblity of
Legionella infection due to other serogroups or species of
Legionella. Clinical correlation is recommended.
03/28/24 16:14 Influenza Types A & B (HANNAH) - Final
Nasal Swab Negative for Influenza A & B, NAAT
Negative results must be combined with clinical observations
and patient history.
Nucleic Acid Amplification test (NAAT)performed on the
[employer] platform.
Imaging:
03/31/2024 ECHO (TTE): Normal biventricular size and systolic function. EF approximately 60 to 65%. Mild mitral regurgitation. Mild aortic regurgitation. Mild tricuspid regurgitation. Small circumferential pericardial effusion without evidence
of tamponade. Pleural effusion is present. Please see full dictation for additional detail.
03/31/2024 CT chest (PE study): No evidence for PE. Confluent parenchymal opacity involving most of both lower lobes, with some aeration superiorly. There is also patchy parenchymal opacity throughout both lungs with central predominance. Pattern
is suggestive of pulmonary edema pattern. Pneumonia is also possible. Please see full dictation for additional detail.
03/28/2024 CXR (2 view): No visible pneumothorax. Moderate airspace disease in the left lower lung field, and mildly in the right lower lung field concerning for pneumonia. Please see full dictation for additional detail. Film personally viewed.
--- NOTE | 2024-04-04 15:13 | CM ---
Received phone call from Sebast[facility] [phone].
Told abx being delivered she spoke with pt's Mother. Nursing [facility]. OK to dc after today's dose.
Nursing and attending aware. Met with pt who is in agreement to dc today.
DC paperwork to be faxed including med list and labs to
[2024-04-04 15:45] VITALS: BP 125/76
--- NOTE | 2024-04-04 16:07 | CM ---
Spoke with pt's Mother Linsey on phone with pt permission who confirms antibiotic being delivered today and nursing will be there tomorrow to teach the home infusion. It will be either pt's Mother or Grandmother picking her up.
--- NOTE | 2024-04-04 17:33 | W.DCSUMMARY ---
Discharge Summary
Discharge Data
Date of Admission: 03/28/24
Date of Discharge: 04/04/24
-
Pending Results: No
Discharge Plan
-
Patient Disposition: Home with Home Care
Discharge Diagnosis/Procedures: Sepsis
Left Lower Lobe Pneumonia
Group A Strep Bacteremia
Invasive Group A strep disease
Pleural Effusion status post right thoracentesis
small pericardial effusion
mild aortic regurgitation
Vitamin D deficiency
Condition: Good
Diet: Regular
Activity: As tolerated
Driving Restrictions: As prior to admission
Bathing Restrictions: None
Blood Work: Repeat CBC and BMP with primary care provider in 1 week of discharge.
Repeat Vitamin D level with primary care provider in 1 month of discharge.
Others Tests: Repeat CXR with primary care provider or Pulmonology in 1 month of discharge
Follow up with Cardio for repeat ECHO in 6 months of discharge.
Activity Restrictions/Additional Instructions:
Please follow up with primary care provider in 1 week of discharge, Infectious Disease in 1-2 weeks of discharge, Pulmonology in 3-4 weeks of discharge, and Cardiology in 6 months of discharge.
Continue with Ceftriaxone 2 g IV daily home infusions as prescribed by infectious disease.
Vitamin D supplementation prescribed for deficiency.
Please take medications as prescribed/recommended and follow up with primary care provider and/or other healthcare provider involved in your care for refills and/or further adjustment to your medication regimen as necessary.
Referrals:
Onesimo Chery MD [Active] - (Follow up with Cardiology in 6 months for repeat ECHO)
Jaquelin Montilla, [Active] - in three to four weeks (PFTs)
Pedro Pablo Amaral DO [Active] - in one to two weeks
Ryan Boyer III, DO [Family Provider] - in one week
Prescriptions:
New
cholecalciferol (vitamin D3) 50 mcg (2,000 unit) Tablet
50 mcg PO DAILY Qty: 30 0RF
Discharge Orders:
Discharge Patient (As Directed); Ordered 04/04/24
Ordered By: Navi Elder
Discharge Date and Time
Print Language: CROATIAN
[2024-04-04] MEDS: STERILE WATER FOR INJECTION 20 ML IV (18:24)
[2024-04-04] MEDS: ROCEPHIN 2000 MG IV (18:25)
--- NOTE | 2024-04-04 18:50 | PTCARENOTE ---
pt left hospital with home infusion paperwork and discharge instructions. midline in place. medications being delivered and appt with infusion nurse set up for tomorrow per pts grandmother. Pt left with grandmother via wheelchair.
== END 2024-04-04 19:03 | disposition home health service (06) | DRG 871 ==
LOC: 3 WEST ACU 22:31
PROVIDERS: Emergency Medicine; Hospitalist; Radiology Vascular & Interventional Radiology; Registered Nurse; ADMITTING PHYSICIAN Internal Medicine; ATTENDING PHYSICIAN Internal Medicine; CONSULT PHYSICIAN Internal Medicine; CONSULT PHYSICIAN Internal Medicine Infectious Disease; CONSULT PHYSICIAN Student in an Organized Health Care Education/Training Program; EMERGENCY PHYSICIAN Emergency Medicine; FAMILY PHYSICIAN Student in an Organized Health Care Education/Training Program
PROC: 0W993ZZ Drainage of Right Pleural Cavity, Percutaneous Approach (ICD-10-PCS; 2024-04-01)
DX: A40.0 Sepsis due to streptococcus, group A (principal); J15.4 Pneumonia due to other streptococci; J96.01 Acute respiratory failure with hypoxia; J90 Pleural effusion, not elsewhere classified; I31.39 Other pericardial effusion (noninflammatory); E55.9 Vitamin D deficiency, unspecified; I35.1 Nonrheumatic aortic (valve) insufficiency; F31.9 Bipolar disorder, unspecified
CPT/HCPCS: 88305; 93308; 32555; 36600; 71045; 71046; 71275; 76700; 80053; 80143; 81003; 81015; 82150; 82306; 82550; 82607; 82805; 82945; 83605; 83615; 83735; 83880; 83986; 84100; 84157; 84478; 84484; 84703; 85025; 85027; 85652; 86140; 86308; 87015; 87040; 87070; 87077; 87086; 87147; 87186; 87205; 87449; 87502; 87811; 87899; 88112; 89051; 93005; 93306; 93321; 93325; 94640; 96361; 96365; 96375; 99285; 99406; Q9967

== ENCOUNTER → 2024-05-06 12:37 | Outpatient (REF) | payer OTHER, SELFPAY | LOC: RAD 12:37 | PROVIDERS: ATTENDING PHYSICIAN Nurse Practitioner Adult Health; FAMILY PHYSICIAN Pediatrics | DX: Z87.01 Personal history of pneumonia (recurrent) (principal) | CPT/HCPCS: 71046 ==

== ENCOUNTER → 2024-09-22 10:36 | Outpatient (REF) | payer OTHER, SELFPAY | LOC: RCS 10:36 | PROVIDERS: ATTENDING PHYSICIAN Nurse Practitioner Gerontology; FAMILY PHYSICIAN Pediatrics | DX: I35.1 Nonrheumatic aortic (valve) insufficiency (principal) | CPT/HCPCS: 93306 ==

== ENCOUNTER 2024-12-15 10:54 | Emergency (ER) | payer OTHER, SELFPAY ==
[2024-12-15] VITALS (7 sets, daily range): BP systolic 85–101; BP diastolic 50–79; BMI 24.4
--- NOTE | 2024-12-15 11:24 | EDRN ---
Katie WOODWARD in room w/ pt.
--- NOTE | 2024-12-15 11:28 | ED.GENMED ---
History of Present Illness
<Kavya Carbajal, [employer] - Last Filed: 12/15/24 19:20>
General
Chief Complaint: Breathing Problem
Source: patient and family (Mother at bedside)
Time Seen by Provider: 12/15/24 11:15
History of Present Illness
History of Present Illness:
19-year-old female with history of pneumonia with sepsis 03/2024, evaluated at [facility] at the end of October for abdominal pain and bloody diarrhea and was put on an antibiotic, cannot remember the name. Patient presents with
shortness of breath and chest pressure and frequent feeling that she's going to faint for the past 2 months. She states symptoms get worse when she exercises. She states she feels faint frequently throughout the day and feels like she is going to
pass out. She denies N/V/D/C. Denies abdominal pain.
Past History
<Kavya Carbajal, [employer] - Last Filed: 12/15/24 19:20>
Past History
ED Past Medical History: Other (PNA, colitis)
ED Past Surgical History: None
Social History
Tobacco: Non-smoker
Alcohol: None
Drug: None
Personal: Single
Living: with family
Employment: Employed ([employer])
Family History
Family History: Negative CAD or Sudden
Review of Systems
<Kavya Carbajal, [employer] - Last Filed: 12/15/24 19:20>
Review of Systems
Allergies reviewed?: Yes
All Other Systems: ROS reviewed and negative except as documented in HPI and ROS
Respiratory: Reports trouble breathing
Cardiac: Reports chest pain
Phy Exam
<Kavya Carbajal, [employer] - Last Filed: 12/15/24 19:20>
Physical Exam
Physical Exam:
GENERAL: No acute distress. A&Ox3.
CONSTITUTIONAL: Afebrile.
EYES: clear, conjunctivae normal
ENMT: moist mucus membranes, Pharynx nl
RESPIRATORY: Regular respirations, nonlabored, lungs clear.
CARDIOVASCULAR: Regular rate and rhythm, no murmurs, no rubs.
GI: Soft, nontender, normal BS
MUSCULOSKELETAL: Moves with ease. Well perfused. Unable to reproduce chest pain with palpation or compression
SKIN: Warm, dry, pink
PSYCH: Normal mood and affect. Well kept, interactive and appropriate
NEUROLOGIC: Awake, alert and oriented. No focal neurological deficits
Course
<Kavya Carbajal, [employer] - Last Filed: 12/15/24 19:20>
Orders/Labs/Results
Orders:
Orders
12/15/24 11:27
Electrocardiogram (*1) Urgent
Reason for Study: Chest Pain
EKG- Treatment ONCE
12/15/24 11:39
Complete Blood Count/With Diff Urgent
Comprehensive Metabolic Panel Urgent
Magnesium Urgent
TSH Reflex To Free T4 Urgent
Troponin I Urgent
12/15/24 11:40
D-Dimer Urgent
Lyme Progressive Urgent
12/15/24 11:43
COVID-19 Antigen Urgent
Source: Nasal Swab
12/15/24 12:30
CR Chest - 2 Views Urgent
Comment:
Reason For Exam: SOB
12/15/24 12:39
Ipratropium/Albuterol Sulfate [Duoneb] 3 ml INH R NOW STA
Abnormal Lab Results
12/15/24
11:39
RBC 4.03 L 10^6/uL
(4.20-5.40)
MCH 31.8 H pg
(27.0-31.0)
MCHC 32.9 L g/dL
(33.0-37.0)
MPV 10.9 H fL
(7.4-10.4)
BUN 24 H mg/dl
(7-17)
AST 39 H U/L
(14-36)
ALT 49 H U/L
(0-35)
12/15/24 11:39
12/15/24 11:39
Vital Signs
Initial and Last Documented VS:
Initial Vital Signs
Temp Pulse Resp Pulse Ox
97.6 F 47 18 98
12/15/24 10:56 12/15/24 10:56 12/15/24 10:56 12/15/24 10:56
Last Documented Vital Signs
Temp Pulse Resp BP Pulse Ox
97.6 F 46 18 92/50 98
12/15/24 10:56 12/15/24 14:15 12/15/24 14:15 12/15/24 14:13 12/15/24 18:45
<Paul Victoria, DO - Last Filed: 12/15/24 12:46>
Orders/Labs/Results
Orders:
Orders
12/15/24 11:27
Electrocardiogram (*1) Urgent
Reason for Study: Chest Pain
EKG- Treatment ONCE
12/15/24 11:39
Complete Blood Count/With Diff Urgent
Comprehensive Metabolic Panel Urgent
Magnesium Urgent
TSH Reflex To Free T4 Urgent
Troponin I Urgent
12/15/24 11:40
D-Dimer Urgent
Lyme Progressive Urgent
12/15/24 11:43
COVID-19 Antigen Urgent
Source: Nasal Swab
12/15/24 12:30
CR Chest - 2 Views Urgent
Comment:
Reason For Exam: SOB
12/15/24 12:39
Ipratropium/Albuterol Sulfate [Duoneb] 3 ml INH R NOW STA
Abnormal Lab Results
12/15/24
11:39
RBC 4.03 L 10^6/uL
(4.20-5.40)
MCH 31.8 H pg
(27.0-31.0)
MCHC 32.9 L g/dL
(33.0-37.0)
MPV 10.9 H fL
(7.4-10.4)
BUN 24 H mg/dl
(7-17)
AST 39 H U/L
(14-36)
ALT 49 H U/L
(0-35)
12/15/24 11:39
12/15/24 11:39
Vital Signs
Initial and Last Documented VS:
Initial Vital Signs
Temp Pulse Resp Pulse Ox
97.6 F 47 18 98
12/15/24 10:56 12/15/24 10:56 12/15/24 10:56 12/15/24 10:56
Last Documented Vital Signs
Temp Pulse Resp BP Pulse Ox
97.6 F 46 18 92/50 98
12/15/24 10:56 12/15/24 14:15 12/15/24 14:15 12/15/24 14:13 12/15/24 18:45
<Kavya Carbajal, [employer] - Last Filed: 12/15/24 19:20>
MDM/Problems Addressed
Differential Diagnosis Includes:
PE: GERD, pneumonia, costochondritis, cardiac dysrhythmia, hypothyroid, Lymes, electrolyte imbalance, seasonal allergies
MDM/Problems Addressed:
19-year-old female with history of pneumonia with sepsis 03/2024, evaluated at [facility] at the end of October for abdominal pain and bloody diarrhea and was put on an antibiotic x 5 days, cannot remember the name. Patient presents
with waxing and waning shortness of breath and chest pressure and frequent feeling that she's going to faint for the past 2 months. Trouble sleeping due to symptoms. She states symptoms get worse when she exercises. She states she feels faint
frequently throughout the day and feels like she is going to pass out. She denies N/V/D/C. Denies abdominal pain/ pain in legs.
Afebrile, NAD
HR low 40's sinus on bedside monitor occasionally going up to 58. Review of records: All HR's recorded since 01/29/22 here: none less than 62
Pt does have feeling of chest pressure now
EKG: Marked sinus bradycardia HR 42
12:30 p.m.
CBC, CMP with no clinically significant abnormality.
Troponin within normal limits.
COVID-negative.
D dimer normal
TSH WNL
Pt echocardiogram from 09/22/[address] Armstrong. No abnormality that is clinically significant for this visit.
Case discussed with Dr. Victoria who evaluated pt: DuoNeb ordered, chest x-ray pending
1:35 PM: Chest x-ray NAD
2:30 p.m.
After DuoNeb patient states she feels much better.
Plan: Rx for Albuterol sent to her pharmacy. Suggested Zyrtec or Claritin as symptoms could very well be from seasonal allergies
Refer to cardiology for follow up if symptoms not resolved in one week. on above meds
BP 100/60 HR 45
Pt ambulated out with normal gait.
<Kavya Carbajal, [employer] - Last Filed: 12/15/24 19:20>
*Pulse Oximetry
SaO2: 100
Oxygen Mode of Delivery: Room air
Patient hypoxic: no
*Critical Care Note
Total Time (30-74mins, 75-104mins- exclusive of procedures): Not Applicable
ED Attending Note
<Kavya Carbajal, [employer] - Last Filed: 12/15/24 19:20>
-
Portions of this chart may have been created with voice recognition software.� Occasional wrong word or��sound alike� substitutions may have occurred due to the inherent limitations of voice recognition software.
<Paul Victoria DO - Last Filed: 12/15/24 12:46>
ED Attending Note
Patient seen and examined by attending physician: Yes
I performed the substantive portion of visit, reviewed & personally made and approve the management plan that is documented in note by myself or ELIA.: Yes
ED Attending Note:
I evaluated the patient at bedside. The patient does have heart rates in the 40s as low as 39 however she is young and has a very athletic build. She does report a sensation of inability to get enough air however her room air sats are as high as
100%. Troponin and D-dimer both reassuring, COVID-negative. Chest x-ray pending.
Discharge Plan
Departure
Patient Disposition: Home (Routine Discharge)
Date of Disposition: 12/15/24
Time of Disposition: 14:28
Patient with high blood pressure during this ER visit?: No
Condition: Good
Discharge Problem:
Atypical chest pain, Seasonal allergies
Instructions: Chest pain (DC), Seasonal allergies - ED (DC)
Prescriptions:
New
albuterol sulfate [Ventolin HFA] 90 mcg/actuation HFA aerosol inhaler
2 puff inhalation QID Qty: 6.7 0RF
No Action
cholecalciferol (vitamin D3) 50 mcg (2,000 unit) Tablet
50 mcg PO DAILY Qty: 30 0RF
Referrals:
Ryan Boyer III, DO [Family Provider, Pediatrics]
Rogelio Mohamud MD [Active, Cardiology] - Next open appointment
Stand Alone Forms: Return to Work
Activity Restrictions/Additional Instructions:
As we discussed, nothing worrisome in your workup here today.
Since the breathing treatment helped, you may have seasonal allergies. I sent a prescription to your pharmacy for albuterol inhaler to take 2 puffs
Up to 4 times a day as needed for shortness of breath, wheezing
Get Claritin or Zyrtec and take it daily and see if that helps.
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
Return here immediately for worsening shortness of breath, worsening chest pain, worsening feeling faint
Interventions
Interventions:
*Risk Screen - Suicide Last Done: 12/15/24 10:56
*General Assessment Last Done: 12/15/24 11:16
*Neglect/Abuse Screening Last Done: 12/15/24 10:56
*ED- Fall Risk Assessment Last Done: 12/15/24 11:16
*ED COVID-19 Vaccine History Last Done: 12/15/24 11:16
*Nursing Disposition Last Done: 12/15/24 15:30
ED- Cardiac Assessment Last Done: 12/15/24 11:52
ED- Pulmonary Assessment Last Done: 12/15/24 11:52
Discharge Date and Time
Discharge Date/Time: 12/15/24 15:30
Print Language: ANGUILLAN
[2024-12-15 11:47] LABS: Hematocrit 38.9 % (37.0-47.0); Hemoglobin 12.8 g/dL (12.0-16.0); Mean Corp Hgb Conc. 32.9 g/dL (33.0-37.0); Mean Corpuscular Volume 96.5 fL (81.0-99.0); Nucleated Red Blood Cells % 0 %; Platelet Count 198 10^3/uL (130-400); Red Cell Dist. Width 13.3 % (11.5-14.5)
[2024-12-15 12:02] LABS: ALT (SGPT) 49 U/L (0-35); AST (SGOT) 39 U/L (14-36); Albumin 4.6 g/dl (3.5-5.0); Alkaline Phosphatase 50 U/L (38-126); Blood Urea Nitrogen 24 mg/dl (7-17); Calcium 9.8 mg/dl (8.4-10.2); Carbon Dioxide 28 mmol/L (22-30); Chloride 106 mmol/L (98-107); Estimated Creatinine Clearance 103 ml/min; Glucose 89 mg/dl (70-99); Magnesium 1.9 mg/dl (1.6-2.3); Potassium 4.5 mmol/L (3.5-5.1); Sodium 138 mmol/L (135-145); Total Protein 7.0 g/dl (6.3-8.2); eGFR > 60.00
[2024-12-15 12:10] LABS: COVID-19 Antigen Negative (Negative)
[2024-12-15 12:14] LABS: Troponin I < 0.012 ng/ml
[2024-12-15 12:14] LABS: D-Dimer < 0.27 ug/mlFEU (0.00-0.50)
[2024-12-17 16:43] LABS: Lyme Antibody Screen, EIA Negative (Negative)
== END 2024-12-15 15:30 | disposition home or self-care (01) ==
LOC: EMR 10:54
PROVIDERS: Registered Nurse; EMERGENCY PHYSICIAN Emergency Medicine; FAMILY PHYSICIAN Student in an Organized Health Care Education/Training Program
DX: R07.89 Other chest pain (principal); J30.2 Other seasonal allergic rhinitis; Z87.01 Personal history of pneumonia (recurrent)
CPT/HCPCS: 99284; 94640; 71046; 80053; 83735; 84443; 84484; 85025; 85379; 86618; 87811; 93005